=== PATIENT | male | born 1945 | race Caucasian/White ===

== ENCOUNTER 2021-06-03 12:56 | Emergency (ER) | payer MEDICARE, SELFPAY ==
[2021-06-03] VITALS (7 sets, daily range): BP systolic 124–173; BP diastolic 66–99; PULSE 65–81; RESP 13–23; TEMP 36.6–36.7; O2SAT 93–100; BMI 32.5
--- NOTE | 2021-06-03 12:59 | HMH.EDGENADL ---
ED Disposition Clinical Impression: Acute allergic reaction Qualifiers: Encounter type: initial encounter Qualified Code(s): T78.40XA - Allergy, unspecified, initial encounter Disposition: Home, Self-Care Condition on Discharge: Good Instructions: DI for General Allergic Reactions Additional Instructions: Prednisone, Pepcid as prescribed for 3 days. [id number] Benadryl 25 mg 4 times a day for 3 days. Return to the emergency department for any worsening of symptoms. Plan has been prescribed to be used as needed for future allergic reaction. Follow-up with manager china Dr. Sierra as referred. Call for appointment. Prescriptions: Famotidine [Pepcid 20mg Tablet] 20 mg PO BID 3 Days #6 tab Prescription Printed predniSONE [Prednisone 20mg Tab] 40 mg PO DAILY #6 tab Prescription Printed Referrals: Provider,Referral, [Primary Care Provider] - Vinh Sierra [Referring] - - Critical Care Critical Care Time: No Attestation: On , the high probability of a clinically significant, sudden or life threatening deterioration of the following system(s) required my full and direct attention, intervention and personal management. The time I documented below is in addition to time spent performing reported procedures but includes the following listed in this critical care notation. Medical Decision Making - Thor Inquiry Pt receiving controlled substance: No Vital Signs: 06/03/21 12:57 06/03/21 13:19 06/03/21 13:30 Temperature 97.8 F Temperature Source Axillary Pulse Rate 81 78 Respiratory Rate 23 15 18 Blood Pressure 173/81 H 151/77 H Blood Pressure [Right Arm] 166/99 H Blood Pressure Mean 111 101 Blood Pressure Mean [Right Arm] 121 Blood Pressure Source [Right Arm] Automatic Cuff 02 Sat by Pulse Oximetry 100 94 L 93 L Oxygen Delivery Method Room Air Room Air Room Air 06/03/21 14:01 06/03/21 14:31 06/03/21 15:00 Temperature Temperature Source Pulse Rate 80 78 68 Respiratory Rate 18 17 17 Blood Pressure 133/74 134/66 124/71 Blood Pressure [Right Arm] Blood Pressure Mean 93 96 88 Blood Pressure Mean [Right Arm] Blood Pressure Source [Right Arm] 02 Sat by Pulse Oximetry 94 L 95 94 L Oxygen Delivery Method - Lab Data Lab Results 06/03/21 13:00: WBC 8.7, RBC 5.07, Hgb 16.1, Hct 48.6, MCV 95.9 H, MCH 31.8 H, MCHC 33.2, RDW 13.6, Plt Count 318, MPV 8.1, Neut % (Auto) 68.2, Lymph % (Auto) 23.2, [place] % (Auto) 7.0, Eos % (Auto) 0.9, Baso % (Auto) 0.7, Neut # (Auto) 6.0, Lymph # (Auto) 2.0, [place] # (Auto) 0.6, Eos # (Auto) 0.1, Baso # (Auto) 0.1 06/03/21 13:00: Sodium 141, Potassium 4.2, Chloride 101, Carbon Dioxide 26, Anion Gap 18.2 H, BUN 21 H, Creatinine 0.80, Estimated Creat Clear 87, Estimated GFR 94, Est GFR ( Amer) 113, Glucose 170 H, Calcium 9.3 Result diagrams: 06/03/21 13:00 06/03/21 13:00 Orders (Tests/Meds): ED MEDICATIONS Generic Name Dose Route Start Last Admin Trade Name Freq PRN Reason Stop Dose Admin Sodium Chloride 8 ml 06/03/21 13:07 Sodium Chloride 0.9% 10ml Vial IV 07/03/21 13:06 NEEDED PRN dilute pepcid Discontinued Medications Generic Name Dose Route Start Last Admin Trade Name Freq PRN Reason Stop Dose Admin Diphenhydramine HCl 50 mg 06/03/21 13:07 06/03/21 12:56 Diphenhydramine 50mg/Ml Vial IV 06/03/21 13:08 50 mg ONCE ONE Administration Epinephrine HCl 0.3 mg 06/03/21 13:07 06/03/21 13:09 Epinephrine 1 Mg/Ml Ampul IM 06/03/21 13:08 0.3 mg ONCE ONE Administration Famotidine 20 mg 06/03/21 13:07 06/03/21 13:01 Famotidine 20mg/2ml Vial IV 06/03/21 13:08 20 mg ONCE ONE Administration Methylprednisolone Sodium Succinate 125 mg 06/03/21 13:07 06/03/21 12:58 Methylprednisolone Sod Succ 125mg Vial IV 06/03/21 13:08 125 mg ONCE ONE Administration - Reevaluation(s) Time: 15:17 Reevaluation #1: Edema of lower lip 50% improved. Feels better. N
[2021-06-03 13:15] LABS: Basophils # 0.1 K/mm3 (0-0.2); Basophils % 0.7 % (0.1-2.0); Eosinophils # 0.1 K/mm3 (0.0-0.4); Eosinophils % 0.9 % (0.1-12.0); Hematocrit 48.6 % (42.0-52.0); Hemoglobin 16.1 g/dL (14.1-18.0); Lymphocytes % 23.2 % (10-50); Mean Corpuscular HGB Conc 33.2 g/dL (31.8-35.4); Mean Corpuscular Hemoglobin 31.8 pg (27.0-31.2); Mean Corpuscular Volume 95.9 fl (80-94); Mean Platelet Volume 8.1 fl (7.4-10.4); Monocytes # 0.6 K/mm3 (0.1-1.0); Neutrophils % 68.2 % (37.0-80.0); Platelet Count 318 K/mm3 (142-424); Red Blood Count 5.07 M/mm3 (4.60-6.20); Red Cell Distribution Width 13.6 % (11.5-17.5); White Blood Count 8.7 K/mm3 (4.8-10.8)
[2021-06-03 13:24] LABS: Chloride 101 mmol/L (98-107); Sodium 141 mmol/L (136-145)
[2021-06-03 13:25] LABS: Potassium 4.2 mmoL/L (3.5-5.1)
[2021-06-03 13:27] LABS: Blood Urea Nitrogen 21 mg/dl (9-20); Creatinine Clearance Estimated 87 mL/min (50-200); Estimated Glomerular Filt Rate 94 ml/min (>60); GFR (African American) 113 ML/MIN (>60)
[2021-06-03 13:28] LABS: Anion Gap 18.2 mEq/L (5-15); Calcium 9.3 mg/dl (8.4-10.2); Carbon Dioxide 26 mmol/L (22.0-30.0); Glucose 170 mg/dl (74-100)
--- NOTE | 2021-06-03 15:19 | PC.NURSE ---
Pt up to restroom
== END 2021-06-03 16:19 | disposition home or self-care (01) ==
PROVIDERS: Emergency Provider Emergency Medicine
DX: T78.1XXA Other adverse food reactions, not elsewhere classified, initial encounter (principal); R06.02 Shortness of breath
CPT/HCPCS: 80048; 85025; 96372; 96374; 96375; 99282

== ENCOUNTER 2021-07-05 11:12 | Emergency (ER) | payer MEDICARE, SELFPAY ==
[2021-07-05 11:15] VITALS: BP 123/81; PULSE 78; RESP 20; TEMP 37.1; O2SAT 97; BMI 32.6
--- NOTE | 2021-07-05 11:54 | HMH.EDUTC ---
[facility] [place] Disposition Clinical Impression: Laceration Disposition: Home, Self-Care Condition on Discharge: Good Instructions: How to Care for a Laceration After Repair, DI for Laceration Repair -- Finger Additional Instructions: follow up in 10 days to have stitches removed watch for s/s of infection return or be seen in ed if worsen Prescriptions: cephALEXin [Cephalexin 500mg Tab] 500 mg PO BID 7 Days #14 tab Transmission Status: Pending to [facility] #[id number] Referrals: Provider,Referral, [Primary Care Provider] - Time of Disposition: 12:07 Medical Decision Making - Thor Inquiry Pt receiving controlled substance: No Vital Signs: 07/05/21 11:15 Temperature 98.8 F Temperature Source Oral Pulse Rate [Right Brachial] 78 Respiratory Rate 20 Blood Pressure [Right Arm] 123/81 Blood Pressure Mean [Right Arm] 95 Blood Pressure Source [Right Arm] Automatic Cuff Blood Pressure Position [Right Arm] Sitting 02 Sat by Pulse Oximetry 97 Oxygen Delivery Method Room Air Orders (Tests/Meds): ED MEDICATIONS Discontinued Medications Generic Name Dose Route Start Last Admin Trade Name Jermain PRN Reason Stop Dose Admin Tetanus/Reduced Diphtheria/Acell Pertussis 0.5 ml 07/05/21 11:35 Tet/Diphth/Pert-Adult 0.5ml Syringe IM 07/05/21 11:36 .ONCE ONE [facility] [place] HPI - General Chief complaint: Urgent Treatment Center Stated complaint: [id number]/02@1030 lac R inden finger Time Seen by Provider: 07/05/21 11:54 Mode of Arrival: Ambulatory Source of Information: Patient Limitations: No Limitations Description of Symptoms (Recalled from Triage Doc. by RN): PATIENT C/O LACERATION TO RIGHT MIDDLE FINGER. STATES HE CUT IT ON A SAW. NOT UP TO DATE ON TETANUS HEENT Symptoms (Recalled from RN notes): No Resp Symptoms (Recalled from RN notes): No Skin Symptoms (Recalled from RN notes): Yes MS Symptoms (Recalled from RN notes): No Functional Status (Recalled from RN notes): WNL - History of Present Illness Provider Complaint: 76 yr old male presents for laceration to rt middle finger. pt states he cut it on a saw. unknown last tetnus shot - Related Data Previous Rx's Medication Instructions Recorded Famotidine [Pepcid 20mg Tablet] 20 mg PO BID 3 Days #6 tab 06/03/21 predniSONE [Prednisone 20mg 40 mg PO DAILY #6 tab 06/03/21 Tab] cephALEXin [Cephalexin 500mg Tab] 500 mg PO BID 7 Days #14 tab 07/05/21 Allergies Allergy/AdvReac Type Severity Reaction Status Date / Time No Known Allergies Allergy Verified 06/03/21 13:07 - Worker's Comp Is this a Worker's Comp case?: No H History - Hepatitis A Screen Drug use history?: No High risk sexual behaviors?: No History of sexually transmitted infection?: No Currently employed?: No Childcare worker?: No Do you have indoor plumbing?: Yes Do you have electricity?: Yes Attestation statement:: This patient has been screened for Hepatitis A risk factors. I have reviewed the patient's past medical history: Yes ROS Obtained: Yes Systems reviewed as appropriate & no additional complaints - Constitutional Constitutional: Reports system reviewed and no additional complaints, except as docu, Denies fever(s) - Eyes Eyes: Reports system reviewed and no additional complaints, except as docu, Denies blurry vision - ENT Ears, Nose, Mouth, and Throat: Reports system reviewed and no additional complaints, except as docu, Denies sore throat - Cardiovascular Cardiovascular: Reports system reviewed and no additional complaints, except as docu, Denies chest pain - Respiratory Respiratory: Reports system reviewed and no additional complaints, except as docu, Denies chest congestion - Gastrointestinal Gastrointestingal: Reports: system reviewed and no additional complaints, except as docu. Denies: belching - Genitourinary Male Genitourinary: Reports system reviewed and no additional complaints, except as docu - Musculoskeletal Musculoskele
[2021-07-05 12:06] VITALS: BP 123/81; PULSE 78; RESP 20; TEMP 37.1; O2SAT 97
== END 2021-07-05 12:15 | disposition home or self-care (01) ==
PROVIDERS: Emergency Provider Nurse Practitioner Family
DX: S61.212A Laceration without foreign body of right middle finger without damage to nail, initial encounter (principal); Z23 Encounter for immunization; W27.0XXA Contact with workbench tool, initial encounter; Y92.018 Other place in single-family (private) house as the place of occurrence of the external cause
CPT/HCPCS: 12001; 90471; 90715; 99202; G0463

== ENCOUNTER 2021-07-15 13:47 | Emergency (ER) | payer MEDICARE, SELFPAY ==
[2021-07-15 15:13] VITALS: BP 131/86; PULSE 69; RESP 21; TEMP 37; O2SAT 100; BMI 31.9
[2021-07-15 15:32] VITALS: BP 131/86; PULSE 69; RESP 21; TEMP 37; O2SAT 100
== END 2021-07-15 15:33 | disposition home or self-care (01) ==
LOC: UTC 13:49
PROVIDERS: Emergency Provider Nurse Practitioner
DX: S61.212D Laceration without foreign body of right middle finger without damage to nail, subsequent encounter (principal)
CPT/HCPCS: G0463; 99202

== ENCOUNTER 2022-11-23 12:01 | Emergency (ER) | payer MEDICARE, SELFPAY ==
[2022-11-23] VITALS (10 sets, daily range): BP systolic 119–143; BP diastolic 62–81; PULSE 61–79; RESP 12–19; TEMP 36.6–36.8; O2SAT 94–98; BMI 34.7
--- NOTE | 2022-11-23 12:01 | ECG_ITS ---
APPROVED REPORT Exam: Resting ECG HR:83 bpm ECG Measurements Heart Rate 83 AXES WI 156 P 37 QRSd 94 QRS 68 QT 394 T 70 QTc 434 Conclusion SINUS RHYTHM NORMAL ECG UNCONFIRMED REPORT Electronically signed by : Demetrius Del Rio MD 11/23/2022 18:50:31
--- NOTE | 2022-11-23 12:20 | XR_ITS ---
FINAL REPORT CLINICAL HISTORY: chest pain FINDINGS: SINGLE-VIEW CHEST There is cardiomegaly. There is a large hiatal hernia. The mediastinum is normal. The lungs are clear. There is no pneumothorax. IMPRESSION: Large hiatal hernia. Reviewed, Interpreted and Dictated by Ajay Zhong III, MD Transcribed by Diane Kelly Authenticated and [facility]
--- NOTE | 2022-11-23 12:28 | PC.NURSE ---
rounded on pt, pt c/o pain in left breast area. MD aware and will go see pt and give orders as needed
[2022-11-23 12:31] LABS: Basophils # 0.1 K/mm3 (0-0.2); Basophils % 0.7 % (0.1-2.0); Eosinophils # 0.1 K/mm3 (0.0-0.4); Eosinophils % 1.1 % (0.1-12.0); Hematocrit 39.6 % (42.0-52.0); Hemoglobin 13.3 g/dL (14.1-18.0); Lymphocytes # 1.6 K/mm3 (0.7-4.5); Lymphocytes % 17.6 % (10-50); Mean Corpuscular HGB Conc 33.5 g/dL (31.8-35.4); Mean Corpuscular Hemoglobin 31.1 pg (27.0-31.2); Mean Corpuscular Volume 92.9 fl (80-94); Mean Platelet Volume 8.4 fl (7.4-10.4); Monocytes # 0.8 K/mm3 (0.1-1.0); Monocytes % 9.1 % (1.7-9.3); Neutrophils # 6.4 K/mm3 (1.8-7.8); Neutrophils % 71.6 % (37.0-80.0); Platelet Count 304 K/mm3 (142-424); Red Blood Count 4.26 M/mm3 (4.60-6.20); White Blood Count 8.9 K/mm3 (4.8-10.8)
[2022-11-23 12:34] LABS: Anion Gap 11.8 mEq/L (5-15); Blood Urea Nitrogen 12 mg/dl (9-20); Calcium 8.8 mg/dl (8.4-10.2); Carbon Dioxide 20 mmol/L (22.0-30.0); Chloride 109 mmol/L (98-107); Creatinine Clearance Estimated 92 mL/min (50-200); Estimated Glomerular Filt Rate 82 ml/min (>60); GFR (African American) 99 ML/MIN (>60); Glucose 122 mg/dl (74-100); Lipase 161 U/L (23-300); Potassium 3.8 mmoL/L (3.5-5.1); Sodium 137 mmol/L (136-145)
--- NOTE | 2022-11-23 12:34 | HMH.EDGENADL ---
Discharge Plan Disposition Patient Disposition: Home, Self-Care Prescriptions Prescriptions: No Action atorvastatin 40 mg tablet 40 mg PO DAILY Label Comments: TAKE 1 TABLET BY MOUTH EVERY NIGHT cetirizine 10 mg tablet 10 mg PO DAILY Label Comments: TAKE 1 TABLET BY MOUTH ONCE DAILY hydroxyzine HCl 50 mg tablet 25 - 50 mg PO Q6 PRN (Reason: Anxiety) Label Comments: TAKE 1/2 TO 1 TABLET BY MOUTH EVERY 6 HOURS NEEDED FOR ANXIETY tamsulosin 0.4 mg capsule 0.4 mg PO HS Label Comments: TAKE 1 CAPSULE BY MOUTH EVERY EVENING ferrous sulfate [FeroSul] 325 mg (65 mg iron) tablet 325 mg PO DAILY Label Comments: TAKE 1 TABLET BY MOUTH ONCE DAILY WITH A MEAL finasteride 5 mg tablet 5 mg PO DAILY Label Comments: TAKE 1 TABLET BY MOUTH EVERY DAY Referrals Follow up/Referrals: Provider,Referral, MD [Primary Care Provider] - See instructions Activity Restrictions/Add. Instructions Additional Instructions/Restrictions: Your spasmodic chest pain today did not reveal an emergent medical condition. Specifically no evidence of any cardiopulmonary emergency. However there was a large hiatal hernia that was found and there was a clinical concern for possible gastric volvulus. Your CT scan did not show definitive evidence of this however with your symptoms having resolved it is possible that this was intermittent and not seen radiographically. I would like for you to follow-up with a general surgeon of your choosing return to the emergency department with any significant worsening of the symptoms. Clinical Impressions Clinical Impression: Chest pain, Hernia, hiatal Discharge ED Provider: Santi Tan Adult [facility] General Chief complaint: Chest Pain Stated complaint: chest pain Time Seen by Provider: 11/23/22 12:35 Mode of Arrival: EMS Source of Information: Patient Limitations: No Limitations Description of Symptoms (Recalled from ER Triage Doc. by RN): pt comes in with left sided chest pain that comes and goes. pain began about 1 hr ago when pt states he was outside doing some yard work. pt reports that he does have anxiety History of Present Illness HPI narrative: Patient is a 77-year-old male presents today with left-sided anterior chest pain that is intermittent in nature. Patient states that this is not exertional not associated with any dyspnea not associate with any diaphoresis nonradiating in nature. He has had some significant bowel gas recently but has not noticed a significant improvement or worsening with passage of any gas either from a belching standpoint or flatus. Patient states he is never had a left heart cath and thinks he may have had a stress test in the past but cannot recall exactly when that was. Does not have a known history of coronary artery disease. States that these episodes last a few moments and then completely resolved 100%. There have been no episodes that have been ongoing. His did state that he has been carrying limbs and leaves and has been using a chainsaw all recently possibly exerting himself low bit more than normal from a upper extremity standpoint. Related Data Home Medications Medication Instructions Recorded Confirmed atorvastatin 40 mg tablet 40 mg PO DAILY Cholesterol 11/23/22 11/23/22 cetirizine 10 mg tablet 10 mg PO DAILY Seasonal Allergies 11/23/22 11/23/22 ferrous sulfate 325 mg (65 mg 325 mg PO DAILY Anemia 11/23/22 11/23/22 iron) tablet (FeroSul) finasteride 5 mg tablet 5 mg PO DAILY BPH 11/23/22 11/23/22 hydroxyzine HCl 50 mg tablet 25 - 50 mg PO Q6 PRN Anxiety 11/23/22 11/23/22 tamsulosin 0.4 mg capsule 0.4 mg PO HS BPH 11/23/22 11/23/22 Allergies Allergy/AdvReac Type Severity Reaction Status Date / Time No Known Allergies Allergy Verified 11/23/22 12:17 [facility] Disclaimer: The information contained in this section may have been updated after the patient was seen, as this inf
[2022-11-23 12:50] LABS: Troponin I < 0.01 ng/ml (0.00-0.034)
[2022-11-23 13:02] LABS: D-Dimer 0.46 ug/mL (0.0-0.5)
--- NOTE | 2022-11-23 13:21 | CT_ITS ---
FINAL REPORT CLINICAL HISTORY: concern for possible gastric volvulus. Lt sided CP x hours FINDINGS: Axial CT images of the chest were obtained with contrast. Coronal reformatted images were also obtained. This study was performed with techniques to keep radiation doses as low as reasonably achievable, (ALARA). Individualized dose reduction techniques using automated exposure control or adjustment of mA and/or KV according to the patient's size were employed. There is no evidence of mediastinal or hilar mass or adenopathy. No axillary mass or adenopathy is identified. On lung window images, no pulmonary mass or dominant pulmonary nodule is identified. No localized pulmonary inflammatory process is identified. There is mild bibasilar atelectasis. There is a large hiatal hernia. There is organoaxial rotation of the stomach without definite volvulus. Several hepatic cysts are identified. There are multiple renal cysts. There is a 5 mm left renal stone. IMPRESSION: Large hiatal hernia with organoaxial rotation of the stomach. No definite volvulus identified but consider correlation with upper GI to evaluate for obstruction. Reviewed, Interpreted and Dictated by Ajay Zhong III, MD Transcribed by Diane Kelly Authenticated and [facility]
--- NOTE | 2022-11-23 15:20 | PC.NURSE ---
meal tray ordered
[2022-11-23 15:54] LABS: Troponin I 0.02 ng/ml (0.00-0.034)
== END 2022-11-23 16:17 | disposition home or self-care (01) ==
PROVIDERS: Emergency Provider Student in an Organized Health Care Education/Training Program
DX: R07.89 Other chest pain (principal); K44.9 Diaphragmatic hernia without obstruction or gangrene
CPT/HCPCS: 71045; 71260; 80048; 83690; 84484; 85025; 85378; 93005; 96374; 99285; Q9967

== ENCOUNTER 2024-06-07 08:21 | Emergency (ER) | payer MEDICARE, SELFPAY ==
[2024-06-07] VITALS (8 sets, daily range): BP systolic 157–191; BP diastolic 92–112; PULSE 72–96; RESP 13–19; TEMP 36.5–36.7; O2SAT 94–98; BMI 33.1; BMI 33.2
--- NOTE | 2024-06-07 08:57 | EXP.UTC ---
Discharge Plan Disposition Patient Disposition: Home, Self-Care Condition: Good Prescriptions Prescriptions: No Action atorvastatin 40 mg tablet 40 mg PO DAILY Patient Comments: TAKE 1 TABLET BY MOUTH EVERY NIGHT sumatriptan succinate 100 mg tablet 100 mg PO DAILY omeprazole 40 mg capsule,delayed release(DR/EC) 40 mg PO DAILY oxybutynin chloride 5 mg tablet 5 mg PO DAILY Patient Comments: TAKE 1 TABLET BY MOUTH TWICE A DAY nortriptyline 50 mg capsule 50 mg PO DAILY Patient Comments: TAKE 1 CAPSULE BY MOUTH EVERY NIGHT Referrals Follow up/Referrals: Provider,Referral, MD [Primary Care Provider] - See instructions Activity Restrictions/Add. Instructions Additional Instructions/Restrictions: You have been evaluated in the ED for your complaints. You may follow-up with your PCP in the next 3 to 5 days. Please return to ED for any new or worsening symptoms. Please continue taking her medications as discussed. Please follow-up with neurology for medication changes Clinical Impressions Clinical Impression: Headache, migraine Print Language Print Language: Frisian Discharge ED Provider: Fernando Sexton [facility] <Twila Coello APRN - Last Filed: 06/07/24 09:15> General Chief complaint: Headache Stated complaint: headaches Mode of Arrival: Ambulatory Source of Information: Patient Limitations: No Limitations Time Seen by Provider: 06/07/24 08:57 Description of Symptoms (Recalled from Triage Doc. by RN): PATIENT C/O MASSIVE HEADACHE THAT HAS BEEN GOING ON FOR A COUPLE OF MONTHS HEENT Symptoms (Recalled from RN notes): Yes Resp Symptoms (Recalled from RN notes): No Skin Symptoms (Recalled from RN notes): No MS Symptoms (Recalled from RN notes): No Functional Status (Recalled from RN notes): WNL History of Present Illness Provider Complaint: Patient states that he started having headaches around the first of the year and he has seen PCP and neurology States that he was prescribed Nortriptyline and it was working ok but for the last couple of months he has had a headache that has progressively got worse States the nortriptyline or sumatriptan he was prescribed was not stopping this one and he seen Neurology and they give him a steriod pack but the migraine has not stopped and was a 15/10 States this morning it is still very bad states he took 3 ibuprofen and nothing is helping it so he came in Related Data Home Medications ?Medication ?Instructions ?Recorded ?Confirmed atorvastatin 40 mg tablet 40 mg PO DAILY 06/07/24 06/07/24 nortriptyline 50 mg capsule 50 mg PO DAILY 06/07/24 06/07/24 omeprazole 40 mg capsule,delayed 40 mg PO DAILY 06/07/24 06/07/24 release oxybutynin chloride 5 mg tablet 5 mg PO DAILY 06/07/24 06/07/24 sumatriptan succinate 100 mg tablet 100 mg PO DAILY 06/07/24 06/07/24 Allergies Allergy/AdvReac Type Severity Reaction Status Date / Time No Known Allergies Allergy Verified 11/23/22 12:17 Worker's Comp Is this a Worker's Comp case?: No PFSH <Twila Coello APRN - Last Filed: 06/07/24 09:15> PFS Disclaimer: The information contained in this section may have been updated after the patient was seen, as this information can be updated by other users. Medical History (Updated 06/07/24 @ 11:57 by Fernando Sexton DO) Anxiety Migraine Hyperlipidemia Surgical History (Updated 06/07/24 @ 08:53 by Jacqueline Cronin RN) History of tonsillectomy History of bladder surgery History of knee surgery Social History (Updated 11/23/22 @ 16:11 by Yair Tan MD) Smoking Status: Never smoker alcohol intake: never current occupational status: other Travel in the last 8 weeks: None <Twila Coello APRN - Last Filed: 06/07/24 09:15> ROS Obtained: Yes All systems reviewed & no additional complaints except as documented and Yes Systems reviewed as appropriate & no additional complaints except as documented Constitutional Constitutional: Reports system reviewed and no additional complaints, except as documented, Reports as per HPI and Reports headache(s) ENT Ears, Nose, Mouth, and Throat: Reports system reviewed and no additional complaints, except as documented, Reports as per HPI and Reports headache(s) Cardiovascular Cardiovascular: Reports system reviewed and no additional complaints, except as documented and Reports as per HPI Respiratory Respiratory: Reports system reviewed and no additional complaints, except as documented and Reports as per HPI Neurologic Neurologic: Reports headache(s) Physical Exam <Twila Coello APRN - Last Filed: 06/07/24 09:15> General General appearance: alert and in no apparent distress Respiratory Respiratory exam: Present normal lung sounds bilaterally; Absent respiratory distress or wheezes Cardiovascular Cardiovascular exam: Present regular rate, normal rhythm and normal heart sounds Neurological Exam Neurological exam: Present alert, oriented X3 and normal gait <Fernando Sexton DO - Last Filed: 06/07/24 15:38> Head Head exam: atraumatic and normocephalic Eye Eye exam: Present normal appearance, PERRL and EOMI ENT ENT exam: Present normal oropharynx and mucous membranes moist Neck Neck exam: Present full ROM; Absent meningismus Abdominal Exam Abdominal exam: Present soft; Absent distention, tenderness, guarding, rebound or rigidity Psychiatric Psychiatric exam: Present normal affect and normal mood Skin Skin exam: Present warm and dry Medical Decision Making <Twila Coello [employer] - Last Filed: 06/07/24 09:15> Thor Inquiry Pt receiving controlled substance: No Thor was queried for this patient: No Vital Signs: 06/07/24 08:40 Temperature 97.9 F Temperature Source Oral Pulse Rate [Left Brachial] 93 H Respiratory Rate 19 Blood Pressure [Left Arm] 157/92 H Blood Pressure Mean [Left Arm] 113 Blood Pressure Source [Left Arm] Automatic Cuff Blood Pressure Position [Left Arm] Sitting 02 Sat by Pulse Oximetry 98 Oxygen Delivery Method Room Air Lab Data 06/07/24 09:27 06/07/24 09:27 Medical Decision Narrative: Patient states that he is has had a massive Headache that has got worse over the last 2mths that has continued despite medication States nothing he has tried is helping so he came in today Contacted the PCP office and patient had an MRI last Jun and nothing since Called and spoke with ED and patient will be moved to the ED for further evaluation <DO Prachi Yna Last Filed: 06/07/24 15:38> Medical Records Medical records reviewed: Yes I reviewed the patient's medical records. Vital Signs: 06/07/24 08:40 Temperature 97.9 F Temperature Source Oral Pulse Rate [Left Brachial] 93 H Respiratory Rate 19 Blood Pressure [Left Arm] 157/92 H Blood Pressure Mean [Left Arm] 113 Blood Pressure Source [Left Arm] Automatic Cuff Blood Pressure Position [Left Arm] Sitting 02 Sat by Pulse Oximetry 98 Oxygen Delivery Method Room Air
--- NOTE | 2024-06-07 09:13 | PC.NURSE ---
Pt arrived to ED from [facility]
--- NOTE | 2024-06-07 09:17 | CT_ITS ---
FINAL REPORT CLINICAL HISTORY: ARREOLA COMPARISON: None FINDINGS: Axial images of the head were obtained without contrast. Coronal and sagittal reformatted images were also obtained. This study was performed with techniques to keep radiation doses as low as reasonably achievable (ALARA). Individualized dose reduction techniques using automated exposure control or adjustment of mA and/or kV according to the patient's size were employed. There is mild generalized age-appropriate atrophy. Periventricular low-attenuation areas are seen consistent with mild chronic ischemic changes. There is no evidence of intracranial hemorrhage or mass. There is no evidence of acute infarct. There is no evidence of shift of the midline structures. No skull abnormality is seen on the bone window images. IMPRESSION: Mild atrophy and mild periventricular chronic ischemic changes. No acute intracranial abnormality identified. Reviewed, Interpreted and Dictated by Ajay Zhong III, MD Transcribed by Tish Valadez Authenticated and [facility]
--- NOTE | 2024-06-07 09:24 | HMH.EDGENADL ---
Discharge Plan Disposition Patient Disposition: Still a Patient Condition: Good Prescriptions Prescriptions: No Action atorvastatin 40 mg tablet 40 mg PO DAILY Patient Comments: TAKE 1 TABLET BY MOUTH EVERY NIGHT sumatriptan succinate 100 mg tablet 100 mg PO DAILY omeprazole 40 mg capsule,delayed release(DR/EC) 40 mg PO DAILY oxybutynin chloride 5 mg tablet 5 mg PO DAILY Patient Comments: TAKE 1 TABLET BY MOUTH TWICE A DAY nortriptyline 50 mg capsule 50 mg PO DAILY Patient Comments: TAKE 1 CAPSULE BY MOUTH EVERY NIGHT Referrals Follow up/Referrals: Provider,Referral, MD [Primary Care Provider] - See instructions Activity Restrictions/Add. Instructions Additional Instructions/Restrictions: You have been evaluated in the ED for your complaints. You may follow-up with your PCP in the next 3 to 5 days. Please return to ED for any new or worsening symptoms. Please continue taking her medications as discussed. Please follow-up with neurology for medication changes Clinical Impressions Clinical Impression: Headache, migraine Print Language Print Language: [place] Discharge ED Provider: Fernando Sexton Adult HPI General Chief complaint: Headache Stated complaint: headaches Time Seen by Provider: 06/07/24 08:57 Mode of Arrival: Ambulatory Source of Information: Patient Limitations: No Limitations Description of Symptoms (Recalled from ER Triage Doc. by RN): PATIENT C/O MASSIVE HEADACHE THAT HAS BEEN GOING ON FOR A COUPLE OF MONTHS History of Present Illness HPI narrative: 79-year-old male with past medical history significant for migraine headaches, HLD, presents today from [facility] for evaluation concerning generalized headache rated as a 10 out of 10 which he states has been present intermittently over the past month. He states that he has follow-up with neurology and has had multiple medication changes however he states that over the past month he feels that his medications have not been assisting with his headaches. He denies any visual disturbances or numbness, tingling or weakness. Denies any head injuries or blood thinner use. He continues to tolerate oral intake without difficulty and has not had any significant cough, congestion, fevers or chills. No further complaints. Related Data Home Medications ?Medication ?Instructions ?Recorded ?Confirmed atorvastatin 40 mg tablet 40 mg PO DAILY 06/07/24 06/07/24 nortriptyline 50 mg capsule 50 mg PO DAILY 06/07/24 06/07/24 omeprazole 40 mg capsule,delayed 40 mg PO DAILY 06/07/24 06/07/24 release oxybutynin chloride 5 mg tablet 5 mg PO DAILY 06/07/24 06/07/24 sumatriptan succinate 100 mg tablet 100 mg PO DAILY 06/07/24 06/07/24 Allergies Allergy/AdvReac Type Severity Reaction Status Date / Time No Known Allergies Allergy Verified 11/23/22 12:17 [facility] Disclaimer: The information contained in this section may have been updated after the patient was seen, as this information can be updated by other users. Medical History (Updated 06/07/24 @ 11:57 by Fernando Sexton DO) Anxiety Migraine Hyperlipidemia Surgical History (Updated 06/07/24 @ 08:53 by Jacqueline Cronin RN) History of tonsillectomy History of bladder surgery History of knee surgery Social History (Updated 11/23/22 @ 16:11 by Yair Tan MD) Smoking Status: Never smoker alcohol intake: never current occupational status: other Travel in the last 8 weeks: None ROS Obtained: Yes All systems reviewed & no additional complaints except as documented Physical Exam General General appearance: alert and in no apparent distress Head Head exam: atraumatic and normocephalic Eye Eye exam: Present normal appearance, PERRL and EOMI ENT ENT exam: Present normal oropharynx and mucous membranes moist Neck Neck exam: Present full ROM; Absent meningismus Respiratory Respiratory exam: Absent respiratory distress, wheezes, stridor or accessory muscle use Cardiovascular Cardiovascular exam: Present normal rhythm Abdominal Exam Abdominal exam: Present soft; Absent distention, tenderness, guarding, rebound or rigidity Neurological Exam Neurological exam: Present alert, oriented X3 and CN II-XII intact; Absent motor sensory deficit Psychiatric Psychiatric exam: Present normal affect and normal mood Skin Skin exam: Present warm and dry Medical Decision Making Medical Records Medical records reviewed: Yes I reviewed the patient's medical records. Thor Inquiry Pt receiving controlled substance: No Thor was queried for this patient: No Vital Signs: 06/07/24 08:40 06/07/24 09:14 06/07/24 09:46 Temperature 97.9 F 97.7 F Temperature Source Oral Oral Pulse Rate 78 Pulse Rate [Left Brachial] 93 H 96 H Respiratory Rate 19 13 Blood Pressure 166/102 H Blood Pressure [Left Arm] 157/92 H 184/112 H Blood Pressure Mean [Left Arm] 113 136 Blood Pressure Source [Left Arm] Automatic Cuff Blood Pressure Position [Left Arm] Sitting 02 Sat by Pulse Oximetry 98 98 95 Oxygen Delivery Method Room Air Room Air Room Air 06/07/24 10:00 06/07/24 10:30 06/07/24 10:44 Temperature Temperature Source Pulse Rate 80 77 83 Pulse Rate [Left Brachial] Respiratory Rate Blood Pressure 167/104 H 177/101 H 184/103 H Blood Pressure [Left Arm] Blood Pressure Mean [Left Arm] Blood Pressure Source [Left Arm] Blood Pressure Position [Left Arm] 02 Sat by Pulse Oximetry 94 L 95 97 Oxygen Delivery Method 06/07/24 11:30 Temperature Temperature Source Pulse Rate 73 Pulse Rate [Left Brachial] Respiratory Rate Blood Pressure 177/98 H Blood Pressure [Left Arm] Blood Pressure Mean [Left Arm] Blood Pressure Source [Left Arm] Blood Pressure Position [Left Arm] 02 Sat by Pulse Oximetry 95 Oxygen Delivery Method Lab Data Lab Results 06/07/24 09:27: WBC 10.6, RBC 4.97, Hgb 15.4, Hct 49.1, MCV 98.8 H, MCH 31.0, MCHC 31.4 L, RDW 14.2, Plt Count 247, MPV 7.6, Neut % (Auto) 75.2, Lymph % (Auto) 13.1, [place] % (Auto) 8.3, Eos % (Auto) 2.9, Baso % (Auto) 0.6, Neut # (Auto) 8.0 H, Lymph # (Auto) 1.4, [place] # (Auto) 0.9, Eos # (Auto) 0.3, Baso # (Auto) 0.1, PT 10.4, INR 0.92, Sodium 138, Potassium 4.0, Chloride 104, Carbon Dioxide 27, Anion Gap 11.0, BUN 12, Creatinine 0.90, Estimated Creat Clear 85, Estimated GFR 81, Est GFR ( Amer) 98, Glucose 118 H, Calcium 8.9, Total Bilirubin 0.9, AST 34, ALT 43, Alkaline Phosphatase 120, Total Protein 7.4, Albumin 4.5, Globulin 2.9, Albumin/Globulin Ratio 1.6 06/07/24 09:27 06/07/24 09:27 Orders (Tests/Meds): ED MEDICATIONS Discontinued Medications Generic Name Dose Route Start Last Admin Trade Name Freq PRN Reason Stop Dose Admin Diphenhydramine HCl 12.5 mg 06/07/24 09:17 06/07/24 09:32 Diphenhydramine 50mg/Ml Vial IV 06/07/24 09:18 12.5 mg ONCE ONE Administration Lactated Ringer's 500 mls @ 999 mls/hr 06/07/24 09:19 06/07/24 09:31 Lactated Ringer's 1000 Ml Bag IV 06/07/24 09:49 999 mls/hr .Q31M ONE Administration Prochlorperazine Edisylate 10 mg 06/07/24 09:17 06/07/24 09:32 Prochlorperazine 10mg/2ml Vial IV 06/07/24 09:18 10 mg ONCE ONE Administration ORDERS Category Date Time Status CT head/brain wo con Stat Cat Scan 06/07/24 09:17 Completed CBC w/Auto Diff [Complete Blood Count Auto Diff] Stat Lab 06/07/24 09:27 Completed CMP [Comprehensive Metabolic Panel] Stat Lab 06/07/24 09:27 Completed PT INR [Prothrombin Time INR] Stat Lab 06/07/24 09:27 Completed Medical Decision Narrative: 79-year-old male with past medical history significant for migraine headaches, HLD, presents today from [facility] for evaluation concerning generalized headache rated as a 10 out of 10 which he states has been present intermittently over the past month. He states that he has follow-up with neurology and has had multiple medication changes however he states that over the past month he feels that his medications have not been assisting with his headaches. He denies any visual disturbances or numbness, tingling or weakness. Denies any head injuries or blood thinner use. On assessment, he was hemodynamically stable and in no acute distress. Afebrile. Chest clear to station bilaterally. Abdomen soft nondistended and nontender to palpation. Neurological exam was nonfocal. Ambulatory without difficulty. Other physical exam findings unremarkable. Differential diagnoses include but limited to migraine headache, tension headache, cluster headache, intracranial bleed, electrolyte disturbance, others. Labs today do not show any significant electrolyte derangements. No elevation in WBC 18.6. CT head does not show any acute intracranial abnormalities. On reassessment the patient is seemingly stable and in no acute distress. He states his headache is improved at this time and is now a 3 out of 10. I will give him a dose of Toradol to further assist. I have also discussed with him his ED workup and results as well as current plan to discharge with continued follow-up with his neurologist for medication changes. He states that his neurologist is in the process of moving and he we will find a new one via his PCP. Provided him with strict return to ED precautions. He verbalized understanding and agreed with plan. Subsequently discharged. Critical Care Critical Care Time Critical Care Time: No
[2024-06-07] MEDS: LACTATED RINGERS 1000ML 500 ML 999 ML IV (09:31)
[2024-06-07] MEDS: PROCHLORPERAZINE 10MG/2ML VIAL 10 MG IV (09:32)
[2024-06-07] MEDS: diphenhydrAMINE 50MG/ML VIAL 12.5 MG IV (09:32)
--- NOTE | 2024-06-07 09:32 | ECG_ITS ---
APPROVED REPORT Exam: Resting ECG HR:78 bpm ECG Measurements Heart Rate 78 AXES MN 172 P 45 QRSd 111 QRS 61 QT 389 T 60 QTc 422 Conclusion SINUS RHYTHM INCOMPLETE RIGHT BUNDLE BRANCH BLOCK [90+ ms QRS DURATION, TERMINAL R IN V1/V2, 40+ ms S IN I/aVL/V4/V5/V6] BORDERLINE ECG UNCONFIRMED REPORT Electronically signed by : TEJAS PATEL, 06/07/2024 15:42:32
--- NOTE | 2024-06-07 09:37 | PC.NURSE ---
Pt gone to RAD via wheelchair
[2024-06-07 09:39] LABS: Chloride 104 mmol/L (98-107)
[2024-06-07 09:40] LABS: Albumin Level 4.5 g/dl (3.5-5.0); Sodium 138 mmol/L (136-145)
--- NOTE | 2024-06-07 09:40 | PC.NURSE ---
Pt returned to room from RAD
[2024-06-07 09:41] LABS: Basophils # 0.1 K/mm3 (0-0.2); Basophils % 0.6 % (0.1-2.0); Eosinophils # 0.3 K/mm3 (0.0-0.4); Eosinophils % 2.9 % (0.1-12.0); Hematocrit 49.1 % (42.0-52.0); Hemoglobin 15.4 g/dL (14.1-18.0); Lymphocytes # 1.4 K/mm3 (0.7-4.5); Lymphocytes % 13.1 % (10-50); Mean Corpuscular HGB Conc 31.4 g/dL (31.8-35.4); Mean Corpuscular Volume 98.8 fl (80-94); Mean Platelet Volume 7.6 fl (7.4-10.4); Monocytes # 0.9 K/mm3 (0.1-1.0); Monocytes % 8.3 % (1.7-9.3); Neutrophils % 75.2 % (37.0-80.0); Platelet Count 247 K/mm3 (142-424); Red Blood Count 4.97 M/mm3 (4.60-6.20); Red Cell Distribution Width 14.2 % (11.5-17.5); White Blood Count 10.6 K/mm3 (4.8-10.8)
[2024-06-07 09:42] LABS: Alanine Aminotransferase 43 U/L (12-78); Albumin/Globulin Ratio 1.6 (1.1-1.8); Alkaline Phosphatase 120 U/L (38-126); Aspartate Amino Transferase 34 U/L (17-59); Bilirubin,Total 0.9 mg/dl (0.2-1.3); Blood Urea Nitrogen 12 mg/dl (9-20); Carbon Dioxide 27 mmol/L (22.0-30.0); Creatinine Clearance Estimated 85 mL/min (50-200); Estimated Glomerular Filt Rate 81 ml/min (>60); GFR (African American) 98 ML/MIN (>60); Globulin 2.9 g/dL (1.3-3.2); Total Protein,Serum 7.4 g/dl (6.3-8.2)
[2024-06-07 09:43] LABS: Calcium 8.9 mg/dl (8.4-10.2); Glucose 118 mg/dl (74-100)
[2024-06-07 10:03] LABS: INR 0.92 (0.9-1.1); Prothrombin Time 10.4 seconds (10.1-12.5)
[2024-06-07] MEDS: KETOROLAC 30MG/ML VIAL 15 MG IV (11:55)
== END 2024-06-07 12:16 | disposition home or self-care (01) ==
LOC: UTC 08:28 → ER 09:12
PROVIDERS: Emergency Provider Emergency Medicine
DX: G43.909 Migraine, unspecified, not intractable, without status migrainosus (principal); E78.5 Hyperlipidemia, unspecified
CPT/HCPCS: 70450; 80053; 85025; 85610; 93005; 96374; 96375; 99285; J0780; J1200; J1885; J7120

== ENCOUNTER 2024-08-03 09:00 | Outpatient (RCR) | payer MEDICARE, SELFPAY | END 2024-08-03 23:59 | disposition home or self-care (01) | LOC: PT 09:00 | PROVIDERS: Visit Provider Orthopaedic Surgery | DX: M25.561 Pain in right knee (principal); Z96.651 Presence of right artificial knee joint; Z98.890 Other specified postprocedural states | CPT/HCPCS: 97014; 97018; 97110; 97140; 97163; 97164; 97530; G0283 ==

== ENCOUNTER 2025-05-15 19:44 | Emergency (ER) | payer MEDICARE, SELFPAY ==
--- NOTE | 2025-05-15 19:39 | CT_ITS ---
PROCEDURE INFORMATION: Exam: CT Head Without Contrast Exam date and time: 05/15/2025 8:32 PM Age: 80 years old Clinical indication: Injury or trauma; Additional info: Fall, head trauma TECHNIQUE: Imaging protocol: Computed tomography of the head without contrast. Radiation optimization: All CT scans at this facility use at least one of these dose optimization techniques: automated exposure control; mA and/or kV adjustment per patient size (includes targeted exams where dose is matched to clinical indication); or iterative reconstruction. COMPARISON: CT HEAD/BRAIN WO CON 06/07/2024 9:25 AM FINDINGS: Brain: Normal. No hemorrhage. Unremarkable white matter. No mass effect. Cerebral ventricles: No ventriculomegaly. Paranasal sinuses: Visualized sinuses are unremarkable. No fluid levels. Mastoid air cells: Visualized mastoid air cells are well aerated. Bones: Unremarkable. No acute fracture. Soft tissues: Unremarkable. IMPRESSION: No acute intracranial abnormality.
--- NOTE | 2025-05-15 19:39 | CT_ITS ---
PROCEDURE INFORMATION: Exam: CTA Chest With Contrast Exam date and time: 05/15/2025 8:37 PM Age: 80 years old Clinical indication: Injury or trauma; Additional info: Fall, left flank pain TECHNIQUE: Imaging protocol: Computed tomographic angiography of the chest with contrast. Exam focused on the arteries. 3D rendering (Not supervised by radiologist): MIP and/or 3D reconstructed images were created by the technologist. Radiation optimization: All CT scans at this facility use at least one of these dose optimization techniques: automated exposure control; mA and/or kV adjustment per patient size (includes targeted exams where dose is matched to clinical indication); or iterative reconstruction. Contrast material: ISO 370; Contrast volume: 80 ml; Contrast route: INTRAVENOUS (IV); COMPARISON: CT ANGIO CHEST PE PROTOCOL 05/15/2025 8:37 PM FINDINGS: Pulmonary arteries: Normal. No pulmonary emboli. Aorta: Unremarkable. No aortic aneurysm. No aortic dissection. Lungs: Unremarkable. No consolidation. No masses. Pleural spaces: Unremarkable. No pneumothorax. No pleural effusion. Heart: Unremarkable. No cardiomegaly. No pericardial effusion. Lymph nodes: Unremarkable. No enlarged lymph nodes. Stomach: Stable moderate-sized hiatal hernia containing the gastric fundus. Bones/joints: Mild degenerative changes throughout the thoracic spine. No vertebral body compression. No acute fracture. Soft tissues: Unremarkable. IMPRESSION: No acute abnormality. Chronic findings as noted.
--- NOTE | 2025-05-15 19:39 | CT_ITS ---
PROCEDURE INFORMATION: Exam: CT Cervical Spine Without Contrast Exam date and time: 05/15/2025 8:34 PM Age: 80 years old Clinical indication: Injury or trauma; Additional info: Fall, head trauma TECHNIQUE: Imaging protocol: Computed tomography of the cervical spine without contrast. Radiation optimization: All CT scans at this facility use at least one of these dose optimization techniques: automated exposure control; mA and/or kV adjustment per patient size (includes targeted exams where dose is matched to clinical indication); or iterative reconstruction. COMPARISON: CT HEAD/BRAIN WO CON 05/15/2025 8:32 PM FINDINGS: Vertebral Bodies: There is no fracture or destructive lesion. The vertebral bodies and posterior elements are intact. Diffuse hypertrophic facet arthropathy. Alignment: Normal. No subluxation. Discs: disc space narrowing and osteophytosis at C2-C3, C3-C4, C4-C5, C5-C6 and C6-C7. Central canal: mild central canal stenosis at C5-C6. Neural foramina: uncovertebral and facet hypertrophy with moderate bilateral foraminal stenosis at C3-C4, moderate left foraminal stenosis at C4-C5, severe right and moderate left foraminal stenosis at C5-C6. The visualized portion of the posterior fossa and brainstem are unremarkable. The prevertebral soft tissues and airway are unremarkable. Lymph nodes: No suspicious lymph nodes. Thyroid gland: Normal. Carotid arteries: Mild calcification. Lung apices: Normal. Soft tissues: Normal. IMPRESSION: 1. No acute fracture, dislocation or subluxation. 2. Multilevel degenerative disc disease and hypertrophic arthropathy with associated central canal and foraminal stenosis, as described above.
--- NOTE | 2025-05-15 19:39 | CT_ITS ---
PROCEDURE INFORMATION: Exam: CTA Abdomen and Pelvis With Contrast Exam date and time: 05/15/2025 8:37 PM Age: 80 years old Clinical indication: Injury or trauma; Additional info: Fall, left flank pain TECHNIQUE: Imaging protocol: Computed tomographic angiography of the abdomen and pelvis with contrast. Exam focused on the arteries. 3D rendering (Not supervised by radiologist): MIP and/or 3D reconstructed images were created by the technologist. Radiation optimization: All CT scans at this facility use at least one of these dose optimization techniques: automated exposure control; mA and/or kV adjustment per patient size (includes targeted exams where dose is matched to clinical indication); or iterative reconstruction. Contrast material: ISO 370; Contrast volume: 80 ml; Contrast route: INTRAVENOUS (IV); COMPARISON: CT ANGIO CHEST PE PROTOCOL 05/15/2025 8:37 PM FINDINGS: Aorta: Mild atherosclerotic calcification of the aorta. No evidence of aneurysm or dissection. Celiac trunk and mesenteric arteries: No occlusion or significant stenosis. Renal arteries: No occlusion or significant stenosis. Right iliac arteries: No occlusion or significant stenosis. Left iliac arteries: No occlusion or significant stenosis. Veins: Incidentally noted retroaortic left renal vein. Liver: No mass. Gallbladder and biliary ducts: Unremarkable. No calcified stones. No ductal dilation. Pancreas: Unremarkable. No mass. No ductal dilation. Spleen: Unremarkable. No splenomegaly. Adrenal glands: Unremarkable. No mass. Kidneys and ureters: Multiple stable simple appearing bilateral renal cortical cysts. No suspicious renal mass or hydronephrosis. Single 6 mm caliceal stone in the left kidney. Stomach and bowel: Stable moderate-sized hiatal hernia containing the gastric fundus. Moderate fecal retention throughout the proximal to mid colon and within the rectum. No evidence of bowel obstruction. Appendix: No evidence of appendicitis. Intraperitoneal space: Unremarkable. No free air. No significant fluid collection. Lymph nodes: Unremarkable. No enlarged lymph nodes. Urinary bladder: Unremarkable. No mass. Reproductive: Unremarkable as visualized. Bones/joints: Moderate degenerative changes throughout the lower spine. No vertebral body compression. No acute fracture. Soft tissues: Unremarkable. IMPRESSION: No acute abnormality. Incidental findings as noted
--- NOTE | 2025-05-15 19:41 | HMH.EDGENADL ---
Discharge Plan Disposition Patient Disposition: Home, Self-Care Prescriptions Prescriptions: New methocarbamol 500 mg tablet 500 mg PO Q8H PRN (Reason: muscle spasm) Qty: 90 0RF lidocaine 5 % adhesive patch,medicated 1 patch topical DAILY Qty: 15 0RF Rx Instructions: leave on most painful area for up to 12 hrs No Action atorvastatin 40 mg tablet 40 mg PO DAILY Patient Comments: TAKE 1 TABLET BY MOUTH EVERY NIGHT sumatriptan succinate 100 mg tablet 100 mg PO DAILY omeprazole 40 mg capsule,delayed release(DR/EC) 40 mg PO DAILY oxybutynin chloride 5 mg tablet 5 mg PO DAILY Patient Comments: TAKE 1 TABLET BY MOUTH TWICE A DAY nortriptyline 50 mg capsule 50 mg PO DAILY Patient Comments: TAKE 1 CAPSULE BY MOUTH EVERY NIGHT Referrals Follow up/Referrals: Provider,Referral, MD [Primary Care Provider, Medical] - See instructions Activity Restrictions/Add. Instructions Additional Instructions/Restrictions: Your workup today did not show any broken bones or signs of internal injury. You likely have deep bruising. Keep your laceration and abrasions clean by using gentle soap and water. You can use the bacitracin ointment on your wounds 3 times daily as needed to help provide infection. You can take Tylenol, ibuprofen, Robaxin and lidocaine patches to help with your symptoms until they resolve. Follow-up with your primary care physician if symptoms do not improve. If you develop any new or worsening symptoms, or if you become concerned for your health for any reason, return to the emergency department for evaluation Clinical Impressions Clinical Impression: Fall, Laceration of left thumb, Abrasion of forehead, Acute left flank pain Print Language Print Language: Hebrew Discharge ED Provider: Higinio Lopez General Adult HPI General Chief complaint: Fall Stated complaint: left rib pain from fall Time Seen by Provider: 05/15/25 21:14 Mode of Arrival: EMS Source of Information: Patient Limitations: No Limitations History of Present Illness HPI narrative: Jose Luis Daugherty is an 80y male with a history of anxiety, migraine, hyperlipidemia, tonsillectomy, bladder surgery, knee surgery who presents to the emergency department for complaints of a fall. Patient arrives by EMS. Patient states that prior to arrival, he was walking down a set of steps and missed the last step, causing him to fall forward. He tried to brace himself with his left hand and injured his left thumb. He did hit his head but did not lose consciousness. Patient is mainly complaining of pain to his left hand as well as pain to his left flank. He denies any neck pain, back pain, chest pain, shortness of breath, headache or vision changes. He states he was able to walk after the incident after being assisted to his feet. He received 50 mcg of fentanyl and 4 mg of IV Zofran and route. Related Data Home Medications ?Medication ?Instructions ?Recorded ?Confirmed atorvastatin 40 mg tablet 40 mg PO DAILY 06/07/24 06/07/24 nortriptyline 50 mg capsule 50 mg PO DAILY 06/07/24 06/07/24 omeprazole 40 mg capsule,delayed 40 mg PO DAILY 06/07/24 06/07/24 release oxybutynin chloride 5 mg tablet 5 mg PO DAILY 06/07/24 06/07/24 sumatriptan succinate 100 mg tablet 100 mg PO DAILY 06/07/24 06/07/24 Previous Rx's ?Medication ?Instructions ?Recorded lidocaine 5 % topical patch 1 patch topical DAILY #15 ea 05/15/25 methocarbamol 500 mg tablet 500 mg PO Q8H PRN muscle spasm #90 05/15/25 tabs Allergies Allergy/AdvReac Type Severity Reaction Status Date / Time No Known Allergies Allergy Verified 11/23/22 12:17 [facility] Disclaimer: The information contained in this section may have been updated after the patient was seen, as this information can be updated by other users. Medical History (Updated 05/15/25 @ 21:27 by Higinio Lopez MD) Anxiety Migraine Hyperlipidemia Surgical History (Updated 06/07/24 @ 08:53 by Jacqueline Cronin RN) History of tonsillectomy History of bladder surgery History of knee surgery Social History (Updated 11/23/22 @ 16:11 by Yair Tan MD) Smoking Status: Never smoker alcohol intake: never current occupational status: other Travel in the last 8 weeks?: None Have you lived/traveled outside US in past 30 days?: No Contact w/someone who lives/traveled outside US past 30 days?: No Exposure to someone with infectious disease in past 14 days?: No Do you have a fever (greater than 100.4 F or 38 C)?: No Have you tested positive for COVID-19?: No Exposed to someone with COVID-19 in past 14 days?: No Do you have a sore throat?: No Do you have a cough?: No Do you have any weakness?: No Do you have any diarrhea?: No Are you experiencing any unusual bleeding?: No Do you have any muscle aches/pain?: No Do you have any abdominal pain?: No Are you experiencing loss of taste or smell?: No Other Medical History Have you received the Flu Vaccine for this season: No Have you received the Pneumonia Vaccine: No ROS Obtained: Yes Systems reviewed as appropriate & no additional complaints except as documented Physical Exam General General appearance: alert and in no apparent distress Head Head exam: other (superficial abrasion over the left eyebrow) Eye Eye exam: Present normal appearance, PERRL and EOMI ENT ENT exam: Present normal external ear exam Neck Neck exam: Present full ROM and other (Cervical collar in place); Absent tenderness Chest Chest inspection: Present symmetric chest wall rise; Absent tenderness or rash Respiratory Respiratory exam: Present normal lung sounds bilaterally; Absent respiratory distress, wheezes or stridor Cardiovascular Cardiovascular exam: Present regular rate and normal rhythm Abdominal Exam Abdominal exam: Present soft and tenderness (Left upper quadrant); Absent distention or guarding exam: Present deferred Extremities Exam Extremities exam: Present normal inspection and tenderness Expanded Upper Extremity Exam Left: Comment: Left upper extremity: Tenderness and superficial laceration over the distal phalanx of the first digit. Superficial abrasions over the palmar aspect of the distal phalanx of the 2nd and 3rd digits. Back Exam Back exam: Present normal inspection; Absent tenderness (No C/T/L-spine tenderness or step-off) Neurological Exam Neurological exam: Present alert and oriented X3 Psychiatric Psychiatric exam: Present anxious Skin Skin exam: Present warm and dry Medical Decision Making Medical Records Screening: Per USPSTF and CDC recommendations, given the prevalence of disease in our region, it is our hospital?s policy to screen for HIV and viral Hepatitis for all patients aged 18 and over and those with ongoing risk factors. Thor Inquiry Pt receiving controlled substance: No Vital Signs: 05/15/25 19:56 05/15/25 21:07 05/15/25 22:40 Temperature 98 F 98 F Temperature Source Temporal Artery Scan Oral Pulse Rate 74 Pulse Rate [Left] 70 Respiratory Rate 18 18 Blood Pressure 134/74 Blood Pressure [Right Arm] 128/90 Blood Pressure Mean [Right Arm] 102 Blood Pressure Source Automatic Cuff Blood Pressure Source [Right Arm] Automatic Cuff Blood Pressure Position Sitting Blood Pressure Position [Right Arm] Sitting 02 Sat by Pulse Oximetry 98 99 Oxygen Delivery Method Nasal Cannula Room Air Room Air Oxygen Flow Rate (LPM) 2 Lab Data Lab Results 05/15/25 20:15: WBC 11.2 H, RBC 4.35 L, Hgb 13.6 L, Hct 40.2 L, MCV 92.4, MCH 31.3 H, MCHC 33.8, RDW 13.3, Plt Count 258, MPV 10.0, Neut % (Auto) 76.1, Lymph % (Auto) 12.1, [place] % (Auto) 9.0, Eos % (Auto) 2.0, Baso % (Auto) 0.4, Neut # (Auto) 8.5 H, Lymph # (Auto) 1.4, [place] # (Auto) 1.0, Eos # (Auto) 0.2, Baso # (Auto) 0.1, PT 11.2, INR 1.01, APTT 22.7 L, Sodium 138, Potassium 4.2, Chloride 108 H, Carbon Dioxide 23, Anion Gap 11.2, BUN 14, Creatinine 1.10, Estimated Creat Clear 75, Estimated GFR 64, Est GFR ( Amer) 78, Glucose 158 H, Calcium 8.8, Total Bilirubin 0.2, AST 32, ALT 28, Alkaline Phosphatase 88, Total Protein 6.5, Albumin 4.3, Globulin 2.2, Albumin/Globulin Ratio 2.0 H, Lipase 45, HCV Ab CARMEN w/Rflx PCR Qn Negative, HIV Ag/Ab Combo Qual Negative 05/15/25 20:15 05/15/25 20:15 Orders (Tests/Meds): ED MEDICATIONS Discontinued Medications Generic Name Dose Route Start Last Admin Trade Name Freq PRN Reason Stop Dose Admin Bacitracin 1 gm 05/15/25 21:28 05/15/25 22:08 Bacitracin Zinc Oint 30gm Tube TP 05/15/25 21:29 Not Given ONCE ONE Iopamidol 80 ml 05/15/25 20:30 05/15/25 20:31 Iopamidol-370 (76%);100ml Bottle IV 05/15/25 20:31 80 ml ONCE ONE Administration Lidocaine 1 each 05/15/25 22:45 05/15/25 22:39 Lidocaine 5% Transdermal Patch TD 06/14/25 22:44 1 each Q24H PORSCHE Administration Methocarbamol 500 mg 05/15/25 22:45 05/15/25 22:45 Methocarbamol 500mg Tablet PO 06/14/25 22:44 500 mg BID PORSCHE Administration Sodium Chloride 10 ml 05/15/25 20:30 05/15/25 20:31 Sodium Chloride 0.9% 10ml Syr (Rad Only) IV 05/15/25 20:31 10 ml ONCE ONE Administration Sodium Chloride 50 ml 05/15/25 20:30 05/15/25 20:31 0.9 % Sodium Chloride 50 Ml Vial IV 05/15/25 20:31 50 ml ONCE ONE Administration Tetanus/Reduced Diphtheria/Acell Pertussis 0.5 ml 05/15/25 19:39 05/15/25 19:50 Tet/Diphth/Pert-Adult 0.5ml Syringe IM 05/15/25 19:40 0.5 ml .ONCE ONE Administration ORDERS Category Date Time Status CT angio abd/pel - TRAUMA Stat Cat Scan 05/15/25 19:[address] cervical spine wo con Stat Cat Scan 05/15/25 19:[address] head/brain wo con Stat Cat Scan 05/15/25 19:39 Completed CTA Chest [CT angio chest PE protocol] Stat Cat Scan 05/15/25 19:39 Completed Hand XR left 2 views [XR hand LT 2V] Stat Exams 05/15/25 19:43 Completed CBC w/Auto Diff [Complete Blood Count Auto Diff] Stat Lab 05/15/25 20:15 Completed CMP [Comprehensive Metabolic Panel] Stat Lab 05/15/25 20:15 Completed HIV Combo Stat Lab 05/15/25 20:15 Completed Hepatitis C Ab Qual. W/ RFX Stat Lab 05/15/25 20:15 Completed Lipase Stat Lab 05/15/25 20:15 Completed PT INR [Prothrombin Time INR] Stat Lab 05/15/25 20:15 Completed PTT [Activated Partial Thrombo Time] Stat Lab 05/15/25 20:15 Completed Medical Decision Narrative: Jose Luis Daugherty is an 80y male with a history of anxiety, migraine, hyperlipidemia, tonsillectomy, bladder surgery, knee surgery who presents to the emergency department for complaints of a fall. Patient arrives by EMS. Patient states that prior to arrival, he was walking down a set of steps and missed the last step, causing him to fall forward. He tried to brace himself with his left hand and injured his left thumb. He did hit his head but did not lose consciousness. Patient is mainly complaining of pain to his left hand as well as pain to his left flank. He denies any neck pain, back pain, chest pain, shortness of breath, headache or vision changes. He states he was able to walk after the incident after being assisted to his feet. He received 50 mcg of fentanyl and 4 mg of IV Zofran and route. On arrival, patient is hemodynamically stable, no acute respiratory distress, maintaining appropriate oxygen saturation on room air. Physical exam, as stated above, reveals an overall well-appearing male. Cervical collar in place. He is complaining of left flank pain but has no tenderness over the the ribs. He has some left upper quadrant tenderness. No midline C/T/L-spine tenderness. He has a superficial abrasion over the left eyebrow. He has mild amount of bleeding to the distal phalanx of his left thumb but nail appears to be intact without subungual hematoma. He does have tenderness at the distal phalanx. He has some superficial abrasions over the distal phalanx on the palmar side of his 2nd and 3rd digit on the left. No tenderness over the wrist, forearm, humerus or shoulder. No chest wall tenderness. Differential diagnosis includes, but is not limited to: Intracranial hemorrhage, cervical spine fracture, rib fracture, pulmonary contusion, intra-abdominal pathology such as splenic laceration, renal laceration, liver laceration, fracture, among others. The most morbid conditions were considered and workup was based on these. Patient's workup in the emergency department included: CT head without contrast, CT C-spine without contrast, CTA chest, CTA abdomen pelvis, left hand x-rays, CMP, PTT, CBC with differential, lipase, PT/INR, patient was treated with Robaxin and lidocaine patch as well as a tetanus booster. Workup showed mild leukocytosis of 11.2, stably low hemoglobin at 13.6, hematocrit 40.2, platelets within normal limits, coagulation studies unremarkable. Liver enzymes within normal limits. Lipase within normal limits. CT imaging was interpreted by me personally. No intracranial hemorrhage, mass or midline shift. No cervical spine fractures or malalignment. Patient's C-spine was cleared Via Nexus criteria. No rib fractures, no evidence of pulmonary contusion. No other findings within the chest, abdomen or pelvis. See final radiology report for details. Left hand x-rays show no fractures or dislocations. Patient's wound was irrigated thoroughly. He does have a small laceration on the distal aspect of his left thumb, however unlikely to benefit from suturing at this time. Will recommend healing via secondary intention. Given this, it is felt that patient is appropriate for discharge at this time. Will prescribe Robaxin and lidocaine patches but also encouraged Tylenol and ibuprofen at home. Return precautions were given. All questions were answered. He demonstrated understanding and was agreement this plan. He was then discharged from the emergency department in stable condition. Critical Care Critical Care Time Critical Care Time: No
--- NOTE | 2025-05-15 19:43 | XR_ITS ---
PROCEDURE INFORMATION: Exam: XR Left Hand Exam date and time: 05/15/2025 7:47 PM Age: 80 years old Clinical indication: Injury or trauma; Fall; Blunt trauma (contusions or hematomas) and laceration; Hand; Left; Additional info: Fall, left thumb injury TECHNIQUE: Imaging protocol: Radiologic exam of the left hand. Views: 1 or 2 views. COMPARISON: No relevant prior studies available. FINDINGS: Bones/joints: No acute fracture. No dislocation. Mild narrowing of the interphalangeal joints. Soft tissues: Normal. IMPRESSION: 1. No acute findings. 2. Mild osteoarthritis of the interphalangeal joints.
--- OUTSIDE RECORDS SUMMARY | 2025-05-15 19:49 | XMS_ITS | Clinical Summary ---
Author Organization [facility] Address [address] [place] [address] Care Team Providers Care Cultural Historian Name Role Phone Messi Yi MD Primary Care Provider [phone] Allergies No known active allergies Medications vitamin D3 125 MCG (5000 UT) capsule capsule Take 1 capsule by mouth Daily. Active multivitamin with minerals tablet tablet Take 1 tablet by mouth Daily. Active hydrOXYzine (ATARAX) 50 MG tabletIndications :Near syncope,Acute anxiety TAKE 1/2 TO 1 TABLET BY MOUTH EVERY 6 HOURS NEEDED FOR ANXIETY 30 tablet 2 3 Active oxybutynin (DITROPAN) 5 MG tablet Take 1 tablet by mouth 2 (Two) Times a Day. Active ubrogepant (UBRELVY) 100 MG tablet Take 1 tablet by mouth 1 (One) Time As Needed. 4 Active CINNAMON PO Take 2,000 mg by mouth Daily. Active propranolol LA (Inderal LA) 80 MG 24 hr capsuleIndication s:Primary hypertension,Libertad odic headache syndrome, not intractable Take 1 capsule by mouth Daily. 30 capsule 5 5 Active atorvastatin (LIPITOR) 40 MG tabletIndications :Hypercholesterol emia Take 1 tablet by mouth Every Night. 90 tablet 1 5 Active Atogepant (Qulipta) 60 MG tabletIndications :Chronic migraine without aura with status migrainosus, not intractable Take 1 tablet by mouth Daily. 90 tablet 1 5 Active omeprazole (priLOSEC) 40 MG capsuleIndication s:Hiatal hernia Take 1 capsule by mouth Daily. 90 capsule 1 5 Active topiramate (Topamax) 50 MG tabletIndications :Periodic headache syndrome, not intractable Take 1 tablet by mouth 2 (Two) Times a Day. 60 tablet 5 5 Active docusate sodium (Colace) 100 MG capsuleIndication s:Chronic idiopathic constipation Take 1 capsule by mouth 2 (Two) Times a Day. 180 capsule 1 5 Active nortriptyline (PAMELOR) 75 MG capsuleIndication s:Chronic daily headache TAKE 1 CAPSULE BY MOUTH EVERY NIGHT 30 capsule 2 5 Active Active Problems Problem Noted Date Diagnosed Date Periodic headache syndrome, not intractable 07/04 Hiatal hernia 11/27/2022 Overview (05/28/2023): Surgery [address] 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 Actinic keratosis 12/05/2021 Iron deficiency anemia due to chronic blood loss 12/05/2021 Pure hypercholesterolemia 12/05/2021 BPH (benign prostatic hyperplasia) 12/05/2021 History of gastrointestinal bleeding 08/05/2018 Encounters Date Type Department Care Team Description 03/22/2025 Refill [facility] [address] [place] [phone] Messi Yi MD Benign prostatic hyperplasia without lower urinary tract symptoms 03/20/2025 Refill [facility] [address] [place] [phone] Messi Yi MD Hiatal hernia 02/16/2025 Refill [facility] [address] [place] [phone] Messi Yi MD Chronic daily headache from Last 3 Months Immunizations Immunization Administration Dates Next Due 31-influenza Vac Quardvalent Preservativ 020,07/13/2017 COVID-19 (MODERNA) 12YRS+ (SPIKEVAX) 09/16/2023 COVID-19 (MODERNA) BIVALENT 12+YRS 09/08/2023, COVID-19 (PFIZER) Purple Cap Monovalent 11/21/19 21,11/01/2020 COVID-19 (UNSPECIFIED) 11/22/2020,11/01/2020 FLUAD TRI 65YR+ 07/11/2019,07/21/2018 Fluad Quad 65+ 06/22/2022,07/12/2020 Fluzone High-Dose 65+YRS 07/15/2021 Fluzone High-Dose 65+yrs 09/08/2023,07/15/2021 Influenza Seasonal Injectable 08/22/2013, 009,07/28/2006 Influenza, Unspecified 07/04/2021,06/07/2017 Pneumococcal Conjugate 13-Valent (PCV13) 018 Pneumococcal Polysaccharide (PPSV23) 11/18/2012 Shingrix 12/16/2020,09/16/2020 TD Preservative Free (Tenivac) 10/25/2016 Tdap 07/05/2021,11/18/2012 Zostavax 07/22/2007 Zoster, Unspecified 12/16/2020 Family History Medical History Relation Name Comments Heart disease Brother jyothi Cancer Father Ari Daugherty leukemia Leukemia Father Ari Daugherty Diabetes Mother esau Relation Name Status Comments Brother jyothi Father Ari Daugherty Mother esau Social History Tobacco Use Types Packs/Day Years Used Date Smoking Tobacco: Never Smokeless Tobacco: Never Tobacco Cessation:Counseling Given: Not Answered Alcohol Use Standard Drinks/Week Comments Not Currently 0 (1 standard drink = 0.6 oz pur e alcohol) one a month PHQ-2 Answer Date Recorded Retired PHQ-9: Brief Depression Severity Measure Score 0 12/30/2022 PHQ-2 Answer Date Recorded Patient Health Questionnaire-2 Score 1 01/05/2025 Sex and Gender Information Value Date Recorded Sex Assigned at Not on file Legal Sex Male 12:24 PM EST Gender Identity Not on file Sexual Orientation Not on file Occupation Industry Job Start Date Job End Date retired Not on file Not on file Not on file Last Filed Vital Signs Vital Sign Reading Time Taken Comments Blood Pressure 136/82 01/05/2025 9:00 AM EDT Pulse 100 01/05/2025 9:00 AM EDT Temperature 36.2 C (97.1 F) 01/05/2025 9:00 AM EDT Respiratory Rate 18 01/05/2025 9:00 AM EDT Oxygen Saturation 91% 01/05/2025 9:00 AM EDT Inhaled Oxygen Concentration - - Weight 103 kg (228 lb) 01/05/2025 9:00 AM EDT Height 177.8 cm (5' 10 ) 01/05/2025 9:00 AM EDT Body Mass Index 32.71 01/05/2025 9:00 AM EDT Plan of Treatment Upcoming Encounters Date Type Department Care Team (Late st Contact Info) Description 07/09/2025 9:15 AM EDT Office Visit [facility] [address] [place] [phone] Messi Yi MD [address] [place] [address] 11/01/2025 11:00 AM EST Office Visit [facility] [address] [place] [address] [place] [phone] Vikram Borrero, DNP, [employer] [address] [place], [place] [id number] Health Maintenance Due Date Last Done Comments RSV Vaccine - Adults (1 - 1- dose 75+ series) 2019 COVID-19 Vaccine (2023-2 5 season) 2025 07/17/2024, 09/16/2023, 09/08/2023, Additional history exists INFLUENZA VACCINE 07/04/2025 07/17/2024, , 06/22/2022, Additional history exists ANNUAL WELLNESS VISIT 01/05/2026 01/05/2025 , 01/05/2024, 01/05/2024, Additional history exists LIPID PANEL 01/05/2026 01/05/2025, 10/01/2024, 01/05/2024, Additional history exists TDAP/TD VACCINES (4 - Td or Tdap) 07/05/2031 07/05/2021, 10/25/2016, 11/18/2012 Pneumococcal Vaccine 50+ Completed 08/05/2018, 11/04 ZOSTER VACCINE Completed 12/16/2020, 12/02, 09/16/2020, Additional history exists Procedures Procedure Name Priority Date/Time Associated Diagnosis Comments LIPID PANEL Routine 01/05/2025 9:20 AM EDT Hypercholesterolemia from Last 3 Months or Most Recently Relevant to Health Maintenance Results * (ABNORMAL) Lipid Panel (01/05/2025 9:20 AM EDT) [facility] Total Cholesterol 109 0 - 200 mg/dL [facility] Comment: Cholesterol Reference Ranges (U.S. Department of Health and Human Services ATP III Classifications) Desirable <200 mg/dL Borderline High 200-239 mg/dL High Risk >240 mg/dL Triglyceride Reference Ranges (U.S. Department of Health and Human Services ATP III Classifications) Normal <150 mg/dL Borderline High 150-199 mg/dL High 200-499 mg/dL Very High >500 mg/dL HDL Reference Ranges (U.S. Department of Health and Human Services ATP III Classifications) Low <40 mg/dl (major risk factor for CHD) High >60 mg/dl ('negative' risk factor for CHD) LDL Reference Ranges (U.S. Department of Health and Human Services ATP III Classifications) Optimal <100 mg/dL Near Optimal 100-129 mg/dL Borderline High 130-159 mg/dL High 160-189 mg/dL Very High >189 mg/dL LDL is calculated using the NIH LDL-C calculation. Triglycerides 149 0 - 150 mg/dL [facility] HDL Cholesterol 25(L) 40 - 60 mg/dL [facility] VLDL Cholesterol Cricket 26 5 - 40 mg/dL [facility] LDL Chol Calc (NIH) 58 0 - 100 mg/dL [facility] Blood 01/05/2025 9:20 AM EDT 01/05/2025 Narrative [facility] - 01/05/2025 8:09 PM EDT Performed at: [address] [place] [id number] Mice Raiser: Ace Bustillo MD, Phone: [phone] Patient Fasting: Y us Messi Yi MD LAB BLOOD ORDERABLES Final Resu lt [facility] [address] [place] [address], [place] [phone] [facility] [address] [place] [address], [place] [phone] from Last 3 Months or Most Recently Relevant to Health Maintenance Insurance Care Teams Cultural Historian Relationship Specialty Start Date End Date Messi Yi MD [address] [place] [id number] PCP - General Family Medicine 10/31/24
--- OUTSIDE RECORDS SUMMARY | 2025-05-15 19:49 | XMS_ITS | Clinical Summary ---
Author Organization Healthcare Address [address] [place] [address] Care Team Providers Care Revenue Coordinator Name Role Phone Pcp, No Primary Care Provider Unavailabl e Allergies No known active allergies Medications atorvastatin (Lipitor) 40 MG tablet Take 1 tablet (40 mg) by mouth every night. Active Qulipta 60 MG tablet Take 60 mg by mouth Daily. Active cholecalciferol (Vitamin D-3) 125 MCG (5000 UT) capsule Take 1 capsule (5,000 Units) by mouth 1 (one) time each day. Active EPINEPHrine (Epipen) 0.3 MG/0.3ML injection syringe Inject 0.3 mL (0.3 mg) as directed if needed for anaphylaxis. Active famotidine (Pepcid) 20 MG tablet Take 1 tablet (20 mg) by mouth at night if needed. Active hydrOXYzine HCl (Atarax) 50 MG tablet Take 10 mg by mouth every 8 (eight) hours if needed. 02/25/2024 Active Multiple Vitamins-Minera ls (Oncovite) tablet Take 1 tablet by mouth 1 (one) time each day. Active nortriptyline (Pamelor) 75 MG capsule Take 1 capsule (75 mg) by mouth 1 (one) time each day. 08/08/2024 Active oxybutynin (Ditropan) 5 MG tablet Take 1 tablet (5 mg) by mouth twice a day. Active propranolol LA (Inderal LA) 80 MG 24 hr capsule Take 1 capsule (80 mg) by mouth 1 (one) time each day. 08/08/2024 Active ubrogepant (Ubrelvy) 100 MG tablet Take 1 tablet (100 mg) by mouth 1 (one) time if needed. 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 06/2024 ARMD (age-related macular degeneration), bilater al 09/11/2024 PCO (posterior capsular opacification), left 06/2024 Pseudophakia of both eyes 09/11/2024 Other localized visual field defect, bilateral 1 11/12/2023 Family History Medical History Relation Name Comments Cataracts Brother Cancer Father Relation Name Status Comments Brother Father Social History Tobacco Use Types Packs/Day Years Used Date Smoking Tobacco: Never Passive Smoke Exposure: Never Smokeless Tobacco: Never Tobacco Cessation:Counseling Given: Not Answered Sex and Gender Information Value Date Recorded Sex Assigned at Not on file Legal Sex Male 1:38 PM EST Gender Identity Not on file Sexual Orientation Not on file Plan of Treatment Health Maintenance Due Date Last Done Comments [facility]-Depression Screening 1944 [facility]-/Child/Adol SDOH Screenings 1944 [facility]- SDOH Screenings 1962 [facility]-Adult SDOH Screenings 1962 [facility]-RSV Vaccine: 60+ Years or (1 - 1-dose 75+ series) 2019 [facility]-Zoster Vaccines (2 of 3) 02/10/2021 12/16/2020, 07/22/2007 [facility]-Medicare Annual Wellness (AWV) 01/04/2025 01/05/2024, 12/30/2022, 12/05/2021 [id number] Vaccine ( season) 2025 07/17/2024, 09/16/2023, 06/22/2022, Additional history exists [facility]-Influenza Vaccine (#1) 06/04/202507/17, 09/08/2023, 06/22/2022, Additional history exists [facility]-DTaP,Tdap,and Td Vaccines (4 - Td or Tdap) 07/05/2031 07/05/2021, 10/25/2016, 11/18/2012 [facility]-Pneumococcal Vaccine: 50+ Years Completed 08/05/2018, 11/18/2012 HPV Vaccines Aged Out No longer eligi ble based on patient's age to complete this topic [facility]-HIB Vaccines Aged Out No longer e ligible based on patient's age to complete this topic [facility]-Hepatitis A Vaccines Aged Out No longer eligible based on patient's age to complete this topic [facility]-IPV Vaccines Aged Out No longer e ligible based on patient's age to complete this topic [facility]-Rotavirus Vaccines Aged Out No lo nger eligible based on patient's age to complete this topic Insurance [employer] MEDICARE Care Teams Revenue Coordinator Relationship Specialty Start Date End Date Pcp, [place] [address] PCP - General Family Medicine 09/11/24
--- OUTSIDE RECORDS SUMMARY | 2025-05-15 19:49 | XMS_ITS ---
Author Organization [facility] Address [address] [place] [address] Care Team Providers Care Power Superintendent Name Role Phone Messi Yi MD Primary Care Provider Chronic Migraine - External Program Status:Enrolled (Active) Start date:07/20/2024 Enrollment date:07/20/2024 Enrollment reason:Referred by provider Current support & services provided:Refill Coordination , Benefits Investigation, Prior Authorization, External Pharmacy Dispensing Linked medications:Ubrogepant (Discontinued) Linked problems:Periodic headache syndrome, not intractable (Active) Case Team Name Relationship Phone Vikram Borrero DNP, [employer] CONSULTANT Nurse Practitioner [phone] Continued Care and Services Coordination
--- OUTSIDE RECORDS SUMMARY | 2025-05-15 19:49 | XMS_ITS | Encounter Summary ---
[facility] Organization [facility] Address [address] [place] [address] Care Team Providers Care Public Affairs Officer Name Role Phone Messi Yi MD Primary Care Provider [phone] Encounter Details Date Type Department Care Team (Late Contact Info) Description 01/15/2025 Results Follow-Up [facility] [address] [place] [address] Messi Yi MD [address] [facility] [place] [address] Social History Tobacco Use Types Packs/Day Years Used Date Smoking Tobacco: Never Smokeless Tobacco: Never Alcohol Use Standard Drinks/Week Comments Not Currently [...] file Not on file Not on file documented as of this encounter Plan of Treatment Upcoming Encounters Date Type Department Care Team (Late Contact Info) Description 07/09/2025 9:15 AM EDT Office Visit [facility] [address] [place] [phone] Messi Yi MD [address] [place] [address] 11/01/2025 11:00 AM EST Office Visit [facility] [address] [facility] [address] [place] [address] Vikram Borrero, DNP, MACHINE CLOTHING REPLACER [address] [facility] [address] [place] [address] documented as of this encounter Visit Diagnoses Not on filedocumented in this encounter Care Teams Public Affairs Officer Relationship Specialty Start Date End Date Messi Yi MD [address] [place] [address] PCP - General Family Medicine 10/31/24 documented as of this encounter
--- OUTSIDE RECORDS SUMMARY | 2025-05-15 19:49 | XMS_ITS | Encounter Summary ---
[facility] Organization [facility] Address [address] [place] [address] Care Team Providers Care Rubber Compounder Formulator Name Role Phone Messi Yi MD Primary Care Provider [phone] Reason for Visit * Reason Comments Med Refill Encounter Details Date Type Department Care Team (Late st Contact Info) Description 03/22/2025 Refill [facility] [address] [place] [address] Messi Yi MD [address] [place] [address] Benign prostatic hyperplasia without lower urinary tract symptoms Social History Tobacco Use Types Packs/Day Years [...] 07/09/2025 9:15 AM EDT Office Visit [facility] [address] [place] [address] Messi Yi MD [address] [place], [place] [address] 11/01/2025 11:00 AM EST Office Visit [facility] [address] [facility] [address] [place] [address] Vikram Borrero, DNP, SUPERANNUATION CLERK [address] [facility] [address] [place] [address] documented as of this encounter Visit Diagnoses Diagnosis Benign prostatic hyperplasia without lower urinary tract symptoms documented in this encounter Care Teams Rubber Compounder Formulator Relationship Specialty Start Date End Date Messi Yi MD [address] [place] [address] PCP - General Family Medicine 10/31/24 documented as of this encounter
--- OUTSIDE RECORDS SUMMARY | 2025-05-15 19:49 | XMS_ITS | Patient Health Record ---
Author Organization [facility] Address [address] [place] [address] Care Team Providers Care Construction Materials Tester Name Role Phone Dae Daily MD Primary Care Provider Al raulito KELLER YULI Unavailable [phone] Reason For Referral No Information Medications Medication SIG (Take, Route, Frequency, Duration) Notes Start Date End Date Status traMADol HCl 50 MG 1 tablet as needed Orally every 6 hours for 7 days 03/11/2020 Not-Taking traMADol HCl 50 MG 1 tablet as needed Orally every 6 hours for 7 days 11/15/2019 Not-Taking Medrol 4 MG as directed Orally a s instructed 08/04/2019 Not-Taking Voltaren Gel 1% 240 grams apply 1- 2 gra ms to affected area Transdermal 4 times a day as needed for 30 days 04/03/2021 Active Iron Active Mobic 15 MG 1 tablet Orally Once a day for 30 day(s) 02/12/2021 Not-Taking methylPREDNISolone 4 MG as directed Oral ly as directed for 6 days 02/12/2021 Not-Taking traMADol HCl 50 MG 1 tablet as needed Orally every 6 hours for 7 days 04/22/2020 Not-Taking Aspirin Adult Low Strength Not-Taking Aspir-81 81 MG 1 tablet Orally Once a day for 30 day(s) Not-Taking Multi Vitamin Daily - 1 tablet Orally On ce a day for 30 day(s) Active Mobic 15 MG 1 tablet Orally Once a day for 30 day(s) 04/03/2021 Active Multi Vitamin/Minerals as directed Orally Active Social History Sex Assigned At : Social History Observation Description Sex Assigned At Male Marital Status: Question Answer Notes What is your current marital status? 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) Active confirmed Problem 064871182343929 Trigger thumb, right thumb (M65.311) Active confirmed Problem 972398518 Other synovitis and tenosynovitis, right lower leg (M65.861) Active confirmed Problem 425527937971702 Right wrist pain (M25.531) Active confirmed Problem 969713681955841 Piriformis syndrome of left side (G57.02) Active confirmed Problem 342872880 Primary osteoarthritis of right knee (M17.11) Active confirmed Problem Pain in limb (21779623) Pain in joint of right hand (M79.641) Active confirmed Problem 1529450186746547 Pain of left thumb (M79.645) Active confirmed Problem 644659171 Hamstring tendonitis (M76.899) Active confirmed Problem 053011053 Arthralgia of right hand (M25.541) Active confirmed Plan Of Treatment Pending Test Test Name Order Date KENALOG 10 MG 07/26/2019 KENALOG 10 MG 12/25/2020 Insurance Providers Payer Name Payer Address Payer Phone Subscriber Number Group Number Insured Name Patient Relationship to Insured Coverage Start Date Coverage End Date [employer] Medicare PPO [address] [place] [phone] [id number] Jose Luis Daugherty Self - patient is the insured Medical (General) History Medical History History ICD Code Arthritis Surgical History Surgery Date(Month/Year) rt knee scope x 2 left total knee 2005 hernia bilat shoulder scopes/repair Trigger release, Lt thumb 03/13/2020 Trigger release, Rt thumb 04/24/2020 Hospitalization History Reason Date(Month/Year) esophogeal spasms/reflux 2009
--- OUTSIDE RECORDS SUMMARY | 2025-05-15 19:49 | XMS_ITS | Encounter Summary ---
[facility] Organization [facility] Address [address] [place] [address] Care Team Providers Care Pasting Machine Offbearer Name Role Phone Messi Yi MD Primary Care Provider [phone] Reason for Visit * Reason Onset Date Comments Med Refill 03/20/2025 Encounter Details Date Type Department Care Team (Late st Contact Info) Description 03/20/2025 Refill [facility] [address] [place] [address] Messi Yi MD [address] [place] [address] Hiatal hernia Social History Tobacco Use Types Packs/Day Years [...] Description 07/09/2025 9:15 AM EDT Office Visit [facility] [address] [place] [phone] Messi Yi MD [address] [place], [place] [address] 11/01/2025 11:00 AM EST Office Visit [facility] [address] [facility] [address] [place] [address] Vikram Borrero, DNP, BARREL MAKER [address] [facility] [address] [place] [address] documented as of this encounter Visit Diagnoses Diagnosis Hiatal hernia Diaphragmatic hernia without mention of obstruction or gangrene documented in this encounter Care Teams Pasting Machine Offbearer Relationship Specialty Start Date End Date Messi Yi MD [address] [place] [address] PCP - General Family Medicine 10/31/24 documented as of this encounter
[2025-05-15] MEDS: TET/DIPHTH/PERT-ADULT 0.5ML SYRINGE 0.5 ML IM (19:50)
[2025-05-15 19:56] VITALS: BP 128/90; PULSE 70; RESP 18; TEMP 36.6; O2SAT 98; BMI 32.8
--- NOTE | 2025-05-15 20:25 | PC.NURSE ---
pt to ct
[2025-05-15 20:30] LABS: Hematocrit 40.2 % (42.0-52.0); Hemoglobin 13.6 g/dL (14.1-18.0); Immature Granulocytes % 0.4 %; Mean Corpuscular HGB Conc 33.8 g/dL (31.8-35.4); Mean Corpuscular Hemoglobin 31.3 pg (27.0-31.2); Mean Corpuscular Volume 92.4 fl (80-94); Nucleated Red Blood Cells % 0 %; Platelet Count 258 K/mm3 (142-424); Red Blood Count 4.35 M/mm3 (4.60-6.20); Red Cell Distribution Width-SD 45.7 fL; White Blood Count 11.2 K/mm3 (4.8-10.8)
[2025-05-15] MEDS: IOPAMIDOL-370 (76%);100ML BOTTLE 80 ML IV (20:31)
[2025-05-15] MEDS: 0.9 % SODIUM CHLORIDE 50 ML VIAL IV (20:31)
[2025-05-15] MEDS: SODIUM CHLORIDE 0.9% 10ML SYR (RAD ONLY) 10 ML IV (20:31)
[2025-05-15 20:40] LABS: Alanine Aminotransferase 28 U/L (12-78); Albumin Level 4.3 g/dl (3.5-5.0); Albumin/Globulin Ratio 2.0 (1.1-1.8); Alkaline Phosphatase 88 U/L (38-126); Anion Gap 11.2 mEq/L (5-15); Aspartate Amino Transferase 32 U/L (17-59); Bilirubin,Total 0.2 mg/dl (0.2-1.3); Blood Urea Nitrogen 14 mg/dl (9-20); Calcium 8.8 mg/dl (8.4-10.2); Carbon Dioxide 23 mmol/L (22.0-30.0); Chloride 108 mmol/L (98-107); Creatinine Clearance Estimated 75 mL/min (50-200); Creatinine,Serum 1.10 mg/dl (0.66-1.25); Estimated Glomerular Filt Rate 64 ml/min (>60); GFR (African American) 78 ML/MIN (>60); Globulin 2.2 g/dL (1.3-3.2); Glucose 158 mg/dl (74-100); Lipase 45 U/L (23-300); Potassium 4.2 mmoL/L (3.5-5.1); Sodium 138 mmol/L (136-145); Total Protein,Serum 6.5 g/dl (6.3-8.2)
[2025-05-15 20:57] LABS: Activated Partial Thrombo Time 22.7 seconds (22.8-30.6); INR 1.01 (0.9-1.1); Prothrombin Time 11.2 seconds (10.1-12.5)
[2025-05-15 21:07] VITALS: O2SAT 99
[2025-05-15 21:41] LABS: Hepatitis C Ab Qual. W/ RFX NEGATIVE (Negative)
--- NOTE | 2025-05-15 21:54 | PC.NURSE ---
Pt abrasion cleansed, left hand soaking in soap and water
--- NOTE | 2025-05-15 22:08 | PC.NURSE ---
Tube of bacitracin not available, individual packets used
[2025-05-15] MEDS: LIDOCAINE 5% TRANSDERMAL PATCH 1 EACH TD (22:39)
[2025-05-15 22:40] VITALS: BP 134/74; PULSE 74; RESP 18; TEMP 36.6; O2SAT 99
[2025-05-15] MEDS: METHOCARBAMOL 500MG TABLET 500 MG PO (22:45)
== END 2025-05-15 22:46 | disposition home or self-care (01) ==
PROVIDERS: Emergency Provider Student in an Organized Health Care Education/Training Program
DX: R10.12 Left upper quadrant pain (principal); S61.012A Laceration without foreign body of left thumb without damage to nail, initial encounter; S00.81XA Abrasion of other part of head, initial encounter; W10.8XXA Fall (on) (from) other stairs and steps, initial encounter
CPT/HCPCS: 70450; 71275; 72125; 73120; 74174; 80053; 83690; 85025; 85610; 85730; 86803; 87389; 90715; 96372; 99285; Q9967

== ENCOUNTER 2025-06-14 15:11 | Emergency (ER) | payer MEDICARE, SELFPAY ==
--- NOTE | 2025-06-14 15:13 | ECG_ITS ---
APPROVED REPORT Exam: Resting ECG HR:52 bpm ECG Measurements Heart Rate 52 AXES MO 221 P 49 QRSd 92 QRS 35 QT 452 T 49 QTc 431 Conclusion Sinus bradycardia First-degree AV block Normal axis No STEMI Electronically signed by : Diogo Jones, 06/14/2025 23:41:17
[2025-06-14 15:20] LABS: POC Glucose,Bedside 130 gm/dL (70-110)
[2025-06-14 15:23] VITALS: BP 121/84; PULSE 57; RESP 20; TEMP 36.4; O2SAT 98; BMI 35.4
--- NOTE | 2025-06-14 15:25 | HMH.EDCP ---
Discharge Plan Disposition Patient Disposition: Home, Self-Care Condition: Good Prescriptions Prescriptions: No Action atorvastatin 40 mg tablet 40 mg PO DAILY Patient Comments: TAKE 1 TABLET BY MOUTH EVERY NIGHT sumatriptan succinate 100 mg tablet 100 mg PO DAILY omeprazole 40 mg capsule,delayed release(DR/EC) 40 mg PO DAILY oxybutynin chloride 5 mg tablet 5 mg PO DAILY Patient Comments: TAKE 1 TABLET BY MOUTH TWICE A DAY nortriptyline 50 mg capsule 50 mg PO DAILY Patient Comments: TAKE 1 CAPSULE BY MOUTH EVERY NIGHT methocarbamol 500 mg tablet 500 mg PO Q8H PRN (Reason: muscle spasm) Qty: 90 0RF lidocaine 5 % adhesive patch,medicated 1 patch topical DAILY Qty: 15 0RF Rx Instructions: leave on most painful area for up to 12 hrs Referrals Follow up/Referrals: Messi Yi [Primary Care Provider, Medical] - See instructions Abhishek Page MD [Staff Physician, Urology] - See instructions Activity Restrictions/Add. Instructions Additional Instructions/Restrictions: Please follow up Dr. Page of Urology. His clinic phone number is [phone]. He has clinic appointments available on Mondays. Otherwise I want you to drink plenty of fluids and I want you to stand up slowly and allow your body to adjust before taking off and walking. If you have any new or worsening symptoms please return to the emergency department. Clinical Impressions Clinical Impression: Orthostatic syncope, Fall Instructions Patient Instructions: DI for Syncope in Adults (Fainting), DI for Syncope in Children (Fainting) Print Language Print Language: Uruguayan Discharge ED Provider: Diogo Jones [facility] General Chief Complaint: Syncope Stated Complaint: Syncope Time Seen by Provider: 06/14/25 15:24 History of Present Illness HPI narrative: This is an 80-year-old male patient, with past medical history of hyperlipidemia, anxiety, and migraines, who is presenting to the emergency department today for evaluation of a syncopal episode. Patient states that he was sitting on his back porch and he stood up to walk into the house and as he was walking into the house his vision began to narrow and he suffered a syncopal episode. He did fall directly backwards onto the ground. He has not observed any evidence of trauma to his own head. He is denying pain in his neck or anywhere else on his body. He tells me that this has never happened to him before. When EMS arrived at the scene his blood pressure was slightly low. He did not have any palpitations or chest pain prior to the syncopal episode. No shortness of breath. He has not had any lower extremity erythema or edema. He denies any cardiac history as well as treatments for hypertension and diabetes. Related Data Home Medications ?Medication ?Instructions ?Recorded ?Confirmed atorvastatin 40 mg tablet 40 mg PO DAILY 06/07/24 06/07/24 nortriptyline 50 mg capsule 50 mg PO DAILY 06/07/24 06/07/24 omeprazole 40 mg capsule,delayed 40 mg PO DAILY 06/07/24 06/07/24 release oxybutynin chloride 5 mg tablet 5 mg PO DAILY 06/07/24 06/07/24 sumatriptan succinate 100 mg tablet 100 mg PO DAILY 06/07/24 06/07/24 Previous Rx's ?Medication ?Instructions ?Recorded lidocaine 5 % topical patch 1 patch topical DAILY #15 ea 05/15/25 methocarbamol 500 mg tablet 500 mg PO Q8H PRN muscle spasm #90 05/15/25 tabs Allergies Allergy/AdvReac Type Severity Reaction Status Date / Time No Known Allergies Allergy Verified 11/23/22 12:[address] [facility] Disclaimer: The information contained in this section may have been updated after the patient was seen, as this information can be updated by other users. Medical History (Updated 06/14/25 @ 17:41 by Diogo Jones DO) Anxiety Migraine Hyperlipidemia Surgical History (Updated 06/07/24 @ 08:53 by Jacqueline Cronin RN) History of tonsillectomy History of bladder surgery History of knee surgery Social History (Updated 11/23/22 @ 16:11 by aYir Tan MD) Smoking Status: Never smoker alcohol intake: never current occupational status: other Travel in the last 8 weeks?: None Have you lived/traveled outside US in past 30 days?: No Contact w/someone who lives/traveled outside US past 30 days?: No Exposure to someone with infectious disease in past 14 days?: No Do you have a fever (greater than 100.4 F or 38 C)?: No Have you tested positive for COVID-19?: No Exposed to someone with COVID-19 in past 14 days?: No Do you have a sore throat?: No Do you have a cough?: No Do you have any weakness?: No Do you have any diarrhea?: No Are you experiencing any unusual bleeding?: No Do you have any muscle aches/pain?: No Do you have any abdominal pain?: No Are you experiencing loss of taste or smell?: No Other Medical History Have you received the Flu Vaccine for this season: No Have you received the Pneumonia Vaccine: No ROS Obtained: Yes Systems reviewed as appropriate & no additional complaints except as documented Physical Exam General General appearance: other (See MDM) Respiratory Respiratory exam: Present other (See MDM) Cardiovascular Cardiovascular exam: Present other (See MDM) Neurological Exam Neurological exam: Present other (See MDM) HEART Score HEART Score HEART Score assessment performed?: Yes History (anamnesis): Slightly suspicious ECG: Normal Age: >65 years Risk factors: 1-2 risk factors Troponin: </= normal limit HEART Score: 3 Critical Care Critical Care Time Critical Care Time: No Medical Decision Making Medical Records Medical records reviewed: Yes I reviewed the patient's medical records. Thor Inquiry Pt receiving controlled substance: No Thor was queried for this patient: No Vital Signs Vital Signs: 06/14/25 15:23 06/14/25 15:30 06/14/25 15:32 Temperature 97.6 F Temperature Source Oral Pulse Rate 57 L Pulse Rate [Left Radial] 57 L Respiratory Rate 20 Blood Pressure 123/64 Blood Pressure [Orthostatic Lying Right Arm] 118/68 Blood Pressure [Orthostatic Standing Right Arm] 98/62 L Blood Pressure [Right Arm] 121/84 Blood Pressure Mean [Right Arm] 96 02 Sat by Pulse Oximetry 98 96 Oxygen Delivery Method Room Air 06/14/25 15:42 06/14/25 16:00 Temperature Temperature Source Pulse Rate 61 Pulse Rate [Left Radial] Respiratory Rate 16 Blood Pressure 131/62 Blood Pressure [Orthostatic Lying Right Arm] 118/68 Blood Pressure [Orthostatic Standing Right Arm] 98/62 L Blood Pressure [Right Arm] Blood Pressure Mean [Right Arm] 02 Sat by Pulse Oximetry 97 Oxygen Delivery Method Lab Data Labs: Lab Results 06/14/25 15:14: POC Glucose 130 H 06/14/25 15:15: WBC 9.1, RBC 4.34 L, Hgb 13.6 L, Hct 39.8 L, MCV 91.7, MCH 31.3 H, MCHC 34.2, RDW 13.2, Plt Count 281, MPV 10.2, Neut % (Auto) 63.8, Lymph % (Auto) 21.2, Woodward % (Auto) 10.7 H, Eos % (Auto) 3.2, Baso % (Auto) 0.8, Neut # (Auto) 5.8, Lymph # (Auto) 1.9, Woodward # (Auto) 1.0, Eos # (Auto) 0.3, Baso # (Auto) 0.1, Sodium 139, Potassium 4.2, Chloride 111 H, Carbon Dioxide 20 L, Anion Gap 12.2, BUN 16, Creatinine 0.90, Estimated Creat Clear 89, Estimated GFR 81, Est GFR ( Amer) 98, Glucose 141 H, Calcium 8.9, Total Bilirubin 0.3, AST 33, ALT 25, Alkaline Phosphatase 68, Troponin I < 0.01, Total Protein 6.7, Albumin 4.3, Globulin 2.4, Albumin/Globulin Ratio 1.8, Lipase 113 06/14/25 15:15 06/14/25 15:15 Response Orders (Tests/Meds): ED MEDICATIONS Generic Name Dose Route Start Last Admin Trade Name Freq PRN Reason Stop Dose Admin Lactated Ringer's 500 mls @ 999 mls/hr 06/14/25 17:14 06/14/25 17:23 Lactated Ringer's 1000 Ml Bag IV 06/14/25 17:44 Not Given .Q31M ONE Discontinued Medications Generic Name Dose Route Start Last Admin Trade Name Freq PRN Reason Stop Dose Admin Iopamidol 80 ml 06/14/25 16:21 06/14/25 16:23 Iopamidol-370 (76%);100ml Bottle IV 06/14/25 16:22 80 ml ONCE ONE Administration Sodium Chloride 40 ml 06/14/25 16:21 06/14/25 16:23 0.9 % Sodium Chloride 50 Ml Vial IV 06/14/25 16:22 40 ml ONCE ONE Administration Sodium Chloride 10 ml 06/14/25 16:21 06/14/25 16:23 Sodium Chloride 0.9% 10ml Syr (Rad Only) IV 06/14/25 16:22 10 ml ONCE ONE Administration ORDERS Category Date Time Status CT angio head Stat Cat Scan 06/14/25 15:[address] angio neck Stat Cat Scan 06/14/25 15:[address] cervical spine wo con Stat Cat Scan 06/14/25 15:[address] head/brain wo con Stat Cat Scan 06/14/25 15:41 Completed Complete Blood Count Auto Diff Stat Lab 06/14/25 15:15 Completed Comprehensive Metabolic Panel Stat Lab 06/14/25 15:15 Completed Lipase Stat Lab 06/14/25 15:15 Completed POC Glucose,Bedside Routine Lab 06/14/25 15:14 Completed Troponin I Stat Lab 06/14/25 15:15 Completed ECG Data Tracing #1: Attestation: I reviewed this ECG and interpreted as documented below: ECG Narrative: EKG personally interpreted by me demonstrates normal sinus bradycardia at a rate of 52 bpm, normal axis, HI prolongation consistent with first-degree AV block, narrow QRS, no QTc prolongation. No ST elevation or depression. No overt signs of ischemia or arrhythmia MDM Narrative Medical Decision Narrative: In summary, this is an 80-year-old male patient who is presented to the emergency department today for evaluation of a syncopal spell after standing quickly in which he fell and struck his head on the ground. Comorbidities include a past medical history of hyperlipidemia, anxiety, and migraines. He does not have any history of coronary artery disease, hypertension, or diabetes. On initial evaluation of the patient they were resting comfortably in no acute distress and nontoxic in appearance. They are hemodynamically stable, saturating well room air, and are neurologically intact. On physical examination, from a traumatic standpoint, he has no scalp lacerations, hematomas, or abrasions. No midface instability or jaw occlusion. No intraoral lacerations or lesions. No hemotympanum. No nasal septal hematoma. No C, T, or L-spine tenderness. No tenderness of the anterior chest wall or abdominal wall. Pelvis is stable. Full range of motion of his extremities without deformities. Otherwise, his heart and lungs are clear to auscultation bilaterally. He does not have any lower extremity pitting edema or erythema. He is appropriately alert and interactive with a GCS of 15. Mucous membranes do appear dry. Differential diagnosis includes ACS/AK, cardiac arrhythmia, electrolyte derangement, acute kidney injury, carotid stenosis, intracranial hemorrhage, cervical spine fracture, among others. Initial workup consisted of hematologic labs as well as an EKG. We will also obtain a CT head without contrast and a CT cervical spine without contrast to assess for traumatic injuries. Will also obtain a CTA of the head and neck to assess for carotid stenosis. Labs personally turbid by me demonstrate no actionable normality. No leukocytosis or actionable anemia. No significant electrolyte derangement or evidence of acute kidney injury. Troponin is less than 0.01. CTA of the head and neck shows no evidence of stenosis. CT head without contrast was personally turbid by me and demonstrates no large intracranial hemorrhage. Official radiology read is in agreement. CT scan of the cervical spine was also negative for acute traumatic injury. We did obtain orthostatic vitals on the patient here in the emergency department today he did have a 20 point drop in his systolic blood pressure. We did give the patient a liter of lactated Ringer's and had him ambulate in the emergency department and he was able to ambulate without experiencing any lightheadedness. The patient tells me that he has been struggling with prostate issues and he is taking oxybutynin and tamsulosin for this. He states that he had his were driving for a period of a couple of hours this morning that he did not drink any water this morning because he did not want to have to stop to use the bathroom. He states that he has not been drinking as much water as he normally does for the sake of not wanting to have to use the bathroom frequently. My suspicion is that the patient has likely had a component of dehydration contributing to orthostatic syncope. I have encouraged him to drink plenty fluids at home and to follow-up with urology about his prostate issues for adjusting his medication regimen to help with symptoms. At this time all questions have and answered and all parties are agreeable with the decision to discharge home.
[2025-06-14 15:30] VITALS: BP 123/64; PULSE 57; O2SAT 96
[2025-06-14 15:32] VITALS: BP 118/68; BP 98/62
--- OUTSIDE RECORDS SUMMARY | 2025-06-14 15:32 | XMS_ITS | Clinical Summary ---
Author Organization Healthcare Address [address] [place] [address] Care Team Providers Care Manager Books Name Role Phone Pcp, No Primary Care [...] Date Last Done Comments [facility]-Depression Screening 1944 [facility]-Infant/Child/Adol SDOH Screenings 1944 [facility]- SDOH Screenings 1962 [facility]-Adult SDOH Screenings 1962 [facility]-RSV Vaccine: 60+ Years or (1 - 1-dose 75+ series) 2019 [facility]-Zoster Vaccines (2 of 3) 02/10/2021 12/16/2020, 07/22/2007 [facility]-Medicare Annual Wellness (AWV) 01/04/2025 01/05/2024, 12/30/2022, 12/05/2021 [id number] Vaccine ( season) 2025 07/17/2024, 09/16/2023, 06/22/2022, [...] this topic Insurance [employer] MEDICARE Care Teams Manager Books Relationship Specialty Start Date End Date Pcp, [place] [address] PCP - General Family Medicine 09/11/24
--- OUTSIDE RECORDS SUMMARY | 2025-06-14 15:32 | XMS_ITS | Encounter Summary ---
Author Organization [facility] Address [address] [place] [address] Care Team Providers Care Booky Name Role Phone Messi Yi MD Primary Care Provider [phone] Encounter Details Date Type Department Care Team (Late Contact Info) Description 01/15/2025 Results Follow-Up [facility] [address] [place] [address] Messi Yi MD [address] [facility] [place] [address] Social History Tobacco Use Types [...] Description 07/09/2025 9:15 AM EDT Office Visit [facility] [address] [place] [id number] Messi Yi MD [address] [place] [place] [address] 11/01/2025 11:00 AM EST Office Visit [facility] [address] [facility] [address] [place] [address] Vikram Borrero, DNP, DIRECTOR CHEMISTRY [address] [facility] [address] [place] [address] documented as of this encounter Visit Diagnoses Not on filedocumented in this encounter Care Teams Booky Relationship Specialty Start Date End Date Messi Yi MD [address] [place] [address] PCP - General Family Medicine 10/31/24 documented as of this encounter
--- OUTSIDE RECORDS SUMMARY | 2025-06-14 15:32 | XMS_ITS | Patient Health Record ---
Author Organization [facility] 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) Active confirmed Problem 569928420796655 Trigger thumb, right thumb (M65.311) Active confirmed Problem 224855798 Other synovitis and tenosynovitis, right lower leg (M65.861) Active confirmed Problem 755133840380222 Right wrist pain (M25.531) Active confirmed Problem 888973011131584 Piriformis syndrome of left side (G57.02) Active confirmed Problem 005723793 Primary osteoarthritis of right knee (M17.11) Active confirmed Problem Pain in limb (89985692) Pain in joint of right hand (M79.641) Active confirmed Problem 1831243778799939 Pain of left thumb (M79.645) Active confirmed Problem 652945091 Hamstring tendonitis (M76.899) Active confirmed Problem 090502805 Arthralgia of right hand (M25.541) Active confirmed Plan Of Treatment Pending Test Test Name Order Date KENALOG 10 MG 07/26/2019 KENALOG 10 MG 12/25/2020 Insurance Providers Payer Name Payer Address Payer Phone Subscriber Number Group Number Insured Name Patient Relationship to Insured Coverage Start Date Coverage End Date A[employer] Medicare PPO [address] [place] [address] [id number] Jose Luis Daugherty Self - patient is the insured Medical (General) History Medical History History ICD Code Arthritis Surgical History Surgery Date(Month/Year) rt knee scope x 2 left total knee 2005 hernia bilat shoulder scopes/repair Trigger release, Lt thumb 03/13/2020 Trigger release, Rt thumb 04/24/2020 Hospitalization History Reason Date(Month/Year) esophogeal spasms/reflux 2009
--- OUTSIDE RECORDS SUMMARY | 2025-06-14 15:32 | XMS_ITS ---
Author Organization [facility] Address [address] [place] [address] Care Team Providers Care Director Advanced Name Role Phone Messi Yi MD Primary Care Provider Chronic Migraine - External Program Status:Enrolled (Active) Start date:07/20/2024 Enrollment date:07/20/2024 Enrollment reason:Referred by provider Current support & services provided:Refill Coordination , Benefits Investigation, Prior Authorization, External Pharmacy Dispensing Linked medications:Ubrogepant (Discontinued) Linked problems:Periodic headache syndrome, not intractable (Active) Case Team Name Relationship Phone Vikram Borrero DNP, AFTER SCHOOL TEACHER Nurse Practitioner [phone] Continued Care and Services Coordination
--- OUTSIDE RECORDS SUMMARY | 2025-06-14 15:32 | XMS_ITS | Clinical Summary ---
Author Organization [facility] Address [address] [place] [address] Care Team Providers Care Solar Project Manager Name Role Phone Messi Yi MD Primary Care Provider Allergies No known active allergies Medications vitamin [...] Type Department Care Team Description 03/22/2025 Refill [facility] [address] [place] [address] Messi Yi MD Benign prostatic hyperplasia without lower urinary tract symptoms 03/20/2025 Refill [facility] [address] [place] [address] Messi Yi MD Hiatal hernia from Last 3 Months Immunizations Immunization Administration [...] esau Relation Name Status Comments Brother jyothi Daugherty Mother esau Social History Tobacco Use [...] Description 07/09/2025 9:15 AM EDT Office Visit [facility] [address] [place] [address] Messi Yi MD [address] [place] [address] 11/01/2025 11:00 AM EST Office Visit [facility] [address] [address] Vikram Borrero, DNP, RISK CONTROL MANAGER [address] [facility] [address] [place], [place] [id number] Health Maintenance Due Date Last Done Comments RSV Vaccine - Adults (1 - 1- dose 75+ series) 2019 COVID-19 Vaccine (2023-2 5 season) 2025 07/17/2024, 09/16/2023, 09/08/2023, Additional history exists INFLUENZA VACCINE 07/04/2025 07/17/2024, , 06/22/2022, Additional history exists ANNUAL WELLNESS VISIT 01/05/2026 01/05/2025 , 01/05/2024, 01/05/2024, Additional history exists LIPID PANEL 01/05/2026 01/05/2025, 01/2024, 01/05/2024, Additional history exists TDAP/TD VACCINES (4 [...] (ABNORMAL) Lipid Panel (01/05/2025 9:20 AM EDT) Total Cholesterol 109 0 - 200 mg/dL [...] 01/05/2025 8:09 PM EDT Performed at: [address] [id number] Production Clerks Supervisor: Ace Bustillo MD, Phone: [phone] Patient Fasting: Y us Messi Yi MD LAB BLOOD ORDERABLES Final Resu lt [facility] (AMBULAT[facility]) [address] [place] [address], [place] [phone] [facility] [address] [place] [address], [place] [phone] from Last 3 Months or Most Recently Relevant to Health Maintenance Insurance Care Teams Solar Project Manager Relationship Specialty Start Date End Date Messi Yi MD [address] [address] PCP - General Family Medicine 10/31/24
--- NOTE | 2025-06-14 15:41 | CT_ITS ---
PROCEDURE INFORMATION: Exam: CTA Neck With Contrast Exam date and time: 06/14/2025 4:27 PM Age: 80 years old Clinical indication: Other: Eval for stenosis TECHNIQUE: Imaging protocol: Computed tomographic angiography of the neck with contrast. Exam focused on the cervical segments of the vasculature. 3D rendering (Not supervised by radiologist): MIP and/or 3D reconstructed images were created by the technologist. Radiation optimization: All CT scans at this facility use at least one of these dose optimization techniques: automated exposure control; mA and/or kV adjustment per patient size (includes targeted exams where dose is matched to clinical indication); or iterative reconstruction. Contrast material: ISOVUE; Contrast volume: 80 ml; Contrast route: INTRAVENOUS (IV); COMPARISON: CT CERVICAL SPINE WO CON 06/14/2025 4:24 PM FINDINGS: Right common carotid artery: Mild distal right common carotid artery noncalcified plaque not contributing to stenosis. Right internal carotid artery: No stenosis of the extracranial segment. No dissection or occlusion. Right external carotid artery: No occlusion or stenosis of the origin. Left common carotid artery: No stenosis. No dissection or occlusion. Left internal carotid artery: Mild proximal left ICA noncalcified plaque not contributing to stenosis. Left external carotid artery: No occlusion or stenosis of the origin. Right vertebral artery: No stenosis. No dissection or occlusion. Left vertebral artery: The left vertebral artery is patent without significant stenosis. Mild potential luminal irregularity and narrowing in the distal V2 segment though this segment is suboptimally visualized given some beam hardening artifacts. No discrete dissection. Soft tissues: Normal. No significant soft tissue swelling. Bones/joints: No acute fracture seen. The cervical spine is evaluated and reported separately. IMPRESSION: 1. No acute vascular findings in the neck. 2. 0% right ICA stenosis. 3. 0% left ICA stenosis. 4. The vertebral arteries are patent without high-grade stenoses. REFERENCES: NASCET CRITERIA. The degree of stenosis in the cervical segment of the internal carotid artery is based on NASCET criteria. Normal is no stenosis. Mild is less than 50% stenosis. Moderate is 50-69% stenosis. Severe is 70% to 99% stenosis. Total occlusion is no detectable patent lumen.
--- NOTE | 2025-06-14 15:41 | CT_ITS ---
PROCEDURE INFORMATION: Exam: CTA Head With Contrast, Arteriography Exam date and time: 06/14/2025 4:27 PM Age: 80 years old Clinical indication: Other: Syncopal fall TECHNIQUE: Imaging protocol: Computed tomographic angiography of the head with contrast. Exam focused on the arteries. 3D rendering (Not supervised by radiologist): MIP and/or 3D reconstructed images were created by the technologist. Radiation optimization: All CT scans at this facility use at least one of these dose optimization techniques: automated exposure control; mA and/or kV adjustment per patient size (includes targeted exams where dose is matched to clinical indication); or iterative reconstruction. Contrast material: ISOVUE; Contrast volume: 80 ml; Contrast route: INTRAVENOUS (IV); COMPARISON: CT HEAD/BRAIN WO CON 06/14/2025 4:22 PM FINDINGS: ANTERIOR CIRCULATION: Right internal carotid artery: The right ICA demonstrates calcified atherosclerosis not contributing to high-grade stenosis. Right middle cerebral artery: No occlusion or significant stenosis. No aneurysm. Right anterior cerebral artery: No occlusion or significant stenosis. No aneurysm. Left internal carotid artery: The left ICA demonstrates calcified atherosclerosis not contributing to high-grade stenosis. Left middle cerebral artery: No occlusion or significant stenosis. No aneurysm. Left anterior cerebral artery: No occlusion or significant stenosis. No aneurysm. POSTERIOR CIRCULATION: Right vertebral artery: No occlusion or significant stenosis. No aneurysm. Left vertebral artery: No occlusion or significant stenosis. No aneurysm. Basilar artery: No occlusion or significant stenosis. No aneurysm. Right posterior cerebral artery: No occlusion or significant stenosis. No aneurysm. Left posterior cerebral artery: Patent. A mild stenosis of the left [employer] in the distal P1 segment. Brain: No definite mass, mass effect, or midline shift. Cerebral ventricles: No significant ventriculomegaly. Orbital cavities: Thinning of the lenses of the globes consistent with prior lens surgery. Bones/joints: Unremarkable. No acute fracture. Soft tissues: Unremarkable. IMPRESSION: No proximal intracranial arterial occlusion or high-grade stenosis seen.
--- NOTE | 2025-06-14 15:41 | CT_ITS ---
PROCEDURE INFORMATION: Exam: CT Cervical Spine Without Contrast Exam date and time: 06/14/2025 4:24 PM Age: 80 years old Clinical indication: Injury or trauma; Fall; Blunt trauma; Additional info: Fall, head impact TECHNIQUE: Imaging protocol: Computed tomography of the cervical spine without contrast. Radiation optimization: All CT scans at this facility use at least one of these dose optimization techniques: automated exposure control; mA and/or kV adjustment per patient size (includes targeted exams where dose is matched to clinical indication); or iterative reconstruction. COMPARISON: CT CERVICAL SPINE WO CON 05/15/2025 8:34 PM FINDINGS: Bones: 2 mm of degenerative retrolisthesis of C5 on C6. 2 mm of grade 1 degenerative anterolisthesis of C6 on C7 and C7 on T1. No acute fracture seen. Severe degenerative changes at C1-C2. Multilevel disc height loss and spondylosis with uncovertebral arthropathy, in particular C5-C6 level. No severe central spinal canal stenoses. Multilevel foraminal stenoses due to uncovertebral and facet arthropathy. Lungs: Lung apices are unremarkable. Soft tissues: Unremarkable. IMPRESSION: No cervical spine fracture seen.
--- NOTE | 2025-06-14 15:41 | CT_ITS ---
PROCEDURE INFORMATION: Exam: CT Head Without Contrast Exam date and time: 06/14/2025 4:22 PM Age: 80 years old Clinical indication: Injury or trauma; Fall; Blunt trauma (contusions or hematomas); Additional info: Fall, eval for bleeds TECHNIQUE: Imaging protocol: Computed tomography of the head without contrast. Radiation optimization: All CT scans at this facility use at least one of these dose optimization techniques: automated exposure control; mA and/or kV adjustment per patient size (includes targeted exams where dose is matched to clinical indication); or iterative reconstruction. COMPARISON: CT HEAD/BRAIN WO CON 05/15/2025 8:32 PM FINDINGS: Brain: The brain demonstrates diffuse volume loss. White matter hypodensities most consistent with chronic small vessel ischemic change. No visible evolving territorial infarct. No hemorrhage. Cerebral ventricles: No ventriculomegaly. Paranasal sinuses: Mild polypoid mucosal thickening in the right maxillary sinus. Mastoid air cells: Visualized mastoid air cells are well aerated. Orbital cavities: Thinning of the lenses of the globes consistent with prior lens surgery. Teeth: Potentially a recent right maxillary tooth extraction. Bones: No acute calvarial fracture seen. Soft tissues: Unremarkable. IMPRESSION: No acute intracranial abnormality seen.
[2025-06-14 15:42] VITALS: BP 118/68; BP 98/62
[2025-06-14 15:42] LABS: Hematocrit 39.8 % (42.0-52.0); Hemoglobin 13.6 g/dL (14.1-18.0); Immature Granulocytes % 0.3 %; Mean Corpuscular HGB Conc 34.2 g/dL (31.8-35.4); Mean Corpuscular Hemoglobin 31.3 pg (27.0-31.2); Mean Corpuscular Volume 91.7 fl (80-94); Nucleated Red Blood Cells % 0 %; Platelet Count 281 K/mm3 (142-424); Red Blood Count 4.34 M/mm3 (4.60-6.20); Red Cell Distribution Width-SD 44.5 fL; White Blood Count 9.1 K/mm3 (4.8-10.8)
[2025-06-14 15:47] LABS: Albumin Level 4.3 g/dl (3.5-5.0); Chloride 111 mmol/L (98-107); Potassium 4.2 mmoL/L (3.5-5.1); Sodium 139 mmol/L (136-145)
[2025-06-14 15:49] LABS: Blood Urea Nitrogen 16 mg/dl (9-20); Creatinine Clearance Estimated 89 mL/min (50-200); Creatinine,Serum 0.90 mg/dl (0.66-1.25); Estimated Glomerular Filt Rate 81 ml/min (>60); GFR (African American) 98 ML/MIN (>60)
[2025-06-14 15:50] LABS: Alanine Aminotransferase 25 U/L (12-78); Albumin/Globulin Ratio 1.8 (1.1-1.8); Alkaline Phosphatase 68 U/L (38-126); Anion Gap 12.2 mEq/L (5-15); Aspartate Amino Transferase 33 U/L (17-59); Bilirubin,Total 0.3 mg/dl (0.2-1.3); Calcium 8.9 mg/dl (8.4-10.2); Carbon Dioxide 20 mmol/L (22.0-30.0); Globulin 2.4 g/dL (1.3-3.2); Glucose 141 mg/dl (74-100); Total Protein,Serum 6.7 g/dl (6.3-8.2)
[2025-06-14 15:53] LABS: Lipase 113 U/L (23-300)
[2025-06-14 16:00] VITALS: BP 131/62; PULSE 61; RESP 16; O2SAT 97
[2025-06-14 16:08] LABS: Troponin I < 0.01 ng/ml (0.00-0.034)
[2025-06-14] MEDS: 0.9 % SODIUM CHLORIDE 50 ML VIAL 40 ML IV (16:23)
[2025-06-14] MEDS: IOPAMIDOL-370 (76%);100ML BOTTLE 80 ML IV (16:23)
[2025-06-14] MEDS: SODIUM CHLORIDE 0.9% 10ML SYR (RAD ONLY) 10 ML IV (16:23)
[2025-06-14 17:55] VITALS: BP 164/91; PULSE 60; RESP 16; TEMP 36.6; O2SAT 99
== END 2025-06-14 17:56 | disposition home or self-care (01) ==
PROVIDERS: Emergency Provider Student in an Organized Health Care Education/Training Program; PCP Family Medicine
DX: I95.1 Orthostatic hypotension (principal); E78.5 Hyperlipidemia, unspecified; F41.9 Anxiety disorder, unspecified
CPT/HCPCS: 70450; 70496; 70498; 72125; 80053; 82962; 83690; 84484; 85025; 93005; 96365; 99284; 99285; Q9967